=== PATIENT | male | born 1960 | race Caucasian/White ===

== ENCOUNTER 2021-06-28 08:50 | Outpatient (REF) | payer BC, SELFPAY ==
[2021-06-28 10:58] LABS: Glucose Urine UA NEG (NEG); Leukocyte Esterase Urine NEG (NEG); Nitrite Urine NEG (NEG); PH 6.5 (5.0-8.0); Urine Blood NEG (NEG); Urine Ketones NEG (NEG); Urine Protein NEG (NEG-TRACE)
[2021-06-28 11:00] LABS: Alanine Aminotransferase 17 U/L (0-40); Alkaline Phosphatase 81 U/L (39-117); Anion Gap 13 (12-20); Aspartate Amino Transferase 22 U/L (5-37); Bilirubin Total 0.9 mg/dL (0.0-1.0); Blood Urea Nitrogen 16 mg/dL (9-16); Calcium 9.5 mg/dL (8.4-10.2); Carbon Dioxide 27 mmol/L (22-29); Chloride 106 mmol/L (96-108); Cholesterol 164 mg/dL; Estimated Glomerular Filt Rate > 60; Glucose Fasting 101 mg/dL (60-99); HDL Cholesterol 40 mg/dL; LDL Cholesterol Calculated 102 mg/dl; Potassium 4.1 mmol/L (3.3-5.1); Sodium 142 mmol/L (135-145); Total Protein 6.2 g/dL (6.5-8.0); Triglycerides 114 mg/dL
[2021-06-28 11:02] LABS: Appearance Urine CLEAR; Color Urine YELLOW; Creatinine Urine 27.47 mg/dL; Microalbumin Urine < 5.0 mg/L
[2021-06-28 11:23] LABS: Prostate Specific Antigen Scr 0.51 ng/mL (<0.05-4.0); TSH reflex Free T4 1.01 uIU/mL (0.32-4.0)
== END 2021-06-28 08:51 | disposition home or self-care (01) ==
LOC: HO.LAB 08:50
PROVIDERS: PCP Family Medicine; Visit Provider Family Medicine
DX: Z00.00 Encounter for general adult medical examination without abnormal findings (principal); Z12.5 Encounter for screening for malignant neoplasm of prostate; I10 Essential (primary) hypertension
CPT/HCPCS: 36415; 80053; 80061; 81003; 82043; 84153; 84443

== ENCOUNTER → 2021-08-20 14:43 | Outpatient (BNVA) | payer BC, SELFPAY | PROVIDERS: PCP Family Medicine; Referring Provider Family Medicine; Visit Provider Nurse Practitioner Family ==

== ENCOUNTER 2021-10-20 07:53 | Day surgery (SDC) | payer BC, SELFPAY ==
--- NOTE | 2021-10-16 10:18 | HO.ANESPROP2 ---
Documented by User: Lula Shell NP 10/16/21 10:19 HPI - Anesthesia Eval Consult details Narrative: 60yo M for Colonoscopy PMFSH Active Problems Active Problems: All Active Problems (Updated 10/10/21 @ 13:14 by Janine Gupta, AURA) Annual visit for general adult medical examination without abnormal findings (Acute) Hematoma (Acute) Arm pain (Acute) Smoker (Acute) Actinic keratosis (Acute) Shoulder pain (Acute) Past Medical History Medical History Actinic keratosis Elevated cholesterol History of anal fissures HTN (hypertension) Smoker Surgical History Surgical History (Updated 10/20/21 @ 08:05 by Tahira Guerrero, AURA) History of ankle surgery History of surgery on arm Social History Social History Housing: House Patient Tobacco Use Status: Current everyday Tobacco user Tobacco use type: Cigarette Cigarettes Per Day: 6 e-Cigarette/Vaping Use: Never Used Use of substances other than those prescribed or required for medical reasons: No Are you DNR?: No Advance Directives: No Advance Directives Information Provided: Yes service: No Current occupational status: employed Current occupation: [employer] Allergies Allergy/AdvReac Type Severity Reaction Status Date / Time No Known Allergies Allergy Mild NKA Verified 10/20/21 08:18 Exam Exam Date and Time: October 16, 2021 1018 Pertinent Lab Results Pertinent Lab Results: Laboratory Tests 04/17/20 06/28/21 10:18 09:02 WBC 8.1 Hgb 16.3 Hct 49.5 Plt Count 187 Sodium 142 Potassium 4.1 Chloride 106 Carbon Dioxide 27 BUN 16 Creatinine 0.76 Assessment and Plan Assessment Anesthesia Assessment: Chart Reviewed Documented by User: Kody Parker 10/20/21 08:46 [facility] Past Medical History Medical History Actinic keratosis Elevated cholesterol History of anal fissures HTN (hypertension) Smoker Family History Family history of problems with anesthesia: No Surgical History Surgical History (Updated 10/20/21 @ 08:05 by Tahira Guerrero RN) History of ankle surgery History of surgery on arm History of Problems with Anesthesia: No Social History Social History Housing: House Patient Tobacco Use Status: Current everyday Tobacco user Tobacco use type: Cigarette Cigarettes Per Day: 6 e-Cigarette/Vaping Use: Never Used Use of substances other than those prescribed or required for medical reasons: No Are you DNR?: No Advance Directives: No Advance Directives Information Provided: Yes service: No Current occupational status: employed Current occupation: [employer] Allergies Allergy/AdvReac Type Severity Reaction Status Date / Time No Known Allergies Allergy Mild NKA Verified 10/20/21 08:18 Exam Airway Mallampati Class: II TM Dist: >3cm Neck ROM: Full Denture: Upper and Lower Loose/Missing/Broken Teeth: Yes Heart: rrr Lungs: bl breath sounds Assessment and Plan Final Anesthetic Review Family History of Problems with Anesthesia: No History of Problems with Anesthesia: No NPO: Yes ASA Class: II Final Preanesthetic Review: Anes Risks/Benef Reviewed Patient Risk: Intermediate Procedure Risk: Intermediate Anesthetic Plan Anesthetic Plan: MAC: Disposition: Standard PACU
[2021-10-20 08:18] VITALS: BMI 35.5
[2021-10-20 08:20] VITALS: BP 132/68; PULSE 88; RESP 16; TEMP 37.1; O2SAT 94
[2021-10-20] MEDS: Lactated Ringers 1,000 ML 100 ML IVCONT (08:37)
--- NOTE | 2021-10-20 09:28 | MHC.SHP ---
Pre-Procedural Eval Section A Date of Service: 10/20/21 Section B Chief Complaint: Screening Relevant Family History (Specify if Yes): No Relevant Social History: Tobacco Use Present Medications: see Short Stay Collaborative assessment Medical History: Significant History (Actinic keratosis Elevated cholesterol History of anal fissures HTN (hypertension) Smoker) History of Previous Operations: Relevant previous surgery/procedure and date(s) (History of ankle surgery History of surgery on arm) Allergies: Allergies Allergy/AdvReac Type Severity Reaction Status Date / Time No Known Allergies Allergy Mild NKA Verified 10/20/21 08:18 Review of Systems Sugical H&P ROS: Negative: Constitution, Cardiovascular, Respiratory, Neurological, Psychiatric, Hem-Onc, Allergic/Immunologic, Gastrointestinal, Genitourinary, Musculoskeletal, Integumentary, Endocrine and Eyes/Ears/Nose/Throat Exam Surgical H&P Exam: Normal: HEENT, Normal: Heart, Normal: Lungs, Normal: Extremities, Normal: Abdomen, Normal: Skin and Normal: Neurological Plan Diagnosis/Plan: Unchanged I have reviewed the history and physical and performed a pertinent physical examination on my patient. No changes have occurred unless specified.
--- NOTE | 2021-10-20 09:54 | P.BOP_ITS ---
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
--- NOTE | 2021-10-20 09:54 | W.PM.OPN ---
Operative Note Operative Note Date of Service: 10/20/21 Narrative: Operative Information Procedure Description: Colonoscopy COLONOSCOPY Instrument: Olympus variable stiffness pediatric scope 190L Colonoscopy Monitoring: Vital signs and clinical assessment, continuous EKG monitoring, Pulse oximetry, Carbon Dioxide monitoring and blood pressure monitoring were done throughout the procedure. Colon withdrawal time was 14 minutes. Procedure: The patient was placed in the left lateral decubitis position and pre-procedure medications were administered. After a digital rectal examination of the ano-rectum, the video colonoscope was inserted into the rectum and advanced through the colon to the cecum/TI. The colonoscope was slowly withdrawn in a retrograde panoramic fashion and the colon mucosa was carefully examined including a retroflexed view of the rectum. Findings and interventions are described below. Procedure Difficulty: easy Findings: Terminal Ileum-normal Cecum:normal Ascending Colon: normal Transverse Colon -normal Descending Colon: x 2 sessile polyps 8-9 mm, one removed with cold snare and the other with forceps Sigmoid Colon: moderate severe diverticulosis, 9-10 mm sessile polyp removed with cold snare Rectum: Retroflexion with small internal hemorrhoids, grade I Anorectum - normal Colon preparation: [place] Bowel Preparation Scale Right colon; 2 Transverse colon: 3 Left colon; 3 (0 = Unprepared colon segment with mucosa not seen due to solid stool that cannot be cleared. 1 = Portion of mucosa of the colon segment seen, but other areas of the colon segment not well seen due to staining, residual stool and/or opaque liquid. 2 = Minor amount of residual staining, small fragments of stool and/or opaque liquid, but mucosa of colon segment seen well. 3 = Entire mucosa of colon segment seen well with no residual staining, small fragments of stool or opaque liquid) Impression and Post Procedure Diagnosis: polyps internal hemorrhoids diverticular disease Plan: High fiber diet leaflet Avoid straining at stool, epsom salts and sitz bath, anusol supps or cream Repeat Colonoscopy in 5-7 years due to polyps or earlier if clinically indicated Above findings were reviewed with the patient and relevant handouts were provided if indicated.
[2021-10-20 10:00] VITALS: BP 93/58; PULSE 83; RESP 16; TEMP 36.5; O2SAT 96
[2021-10-20 10:15] VITALS: BP 113/64; PULSE 78; RESP 16; TEMP 36.5; O2SAT 95
== END 2021-10-20 10:53 ==
LOC: HO.SSS 07:54
PROVIDERS: PCP Family Medicine; Visit Provider Internal Medicine Gastroenterology
PROC: 0DJD8ZZ Inspection of Lower Intestinal Tract, Via Natural or Artificial Opening Endoscopic (ICD-10-PCS; CPT 45378; principal; 2021-10-20 09:20)
DX: Z12.11 Encounter for screening for malignant neoplasm of colon (principal); D12.4 Benign neoplasm of descending colon; K63.5 Polyp of colon; K57.30 Diverticulosis of large intestine without perforation or abscess without bleeding; K64.0 First degree hemorrhoids; Z87.19 Personal history of other diseases of the digestive system; I10 Essential (primary) hypertension; E78.00 Pure hypercholesterolemia, unspecified; Z79.899 Other long term (current) drug therapy; F17.210 Nicotine dependence, cigarettes, uncomplicated
CPT/HCPCS: 45385; 45380; 88305; J2370

== ENCOUNTER 2021-12-24 06:12 | Emergency (ER) | payer BC, SELFPAY ==
--- NOTE | ~2021-12-24 | CT_ITS ---
EXAMINATION: CT ABDOMEN AND PELVIS WITHOUT CONTRAST CLINICAL INFORMATION: Left lower quadrant pain COMPARISON: 11/13/2006 TECHNIQUE: Multidetector volumetric imaging was performed from the superior aspect of the liver through the pubic symphysis. Sagittal and coronal reformatted images were obtained on the technologist's workstation. This CT examination was performed using dose optimization techniques as appropriate, variously including the following: *Automated exposure control *Adjustment of mA and/or kV according to patient size (this includes techniques or standardized protocols for targeted exams where dose is matched to indication/reason for exam; i.e. extremities or head) *Use of iterative reconstruction technique DLP: 858 mGy-cm FINDINGS: LUNG BASES: Minimal right basilar atelectasis. LIVER, GALLBLADDER, AND BILIARY TREE: The liver is normal in size, shape, and attenuation. No focal hepatic lesion or biliary ductal dilatation is present. A regular appearance of the gallbladder fundus, with thickening. This is a chronic appearance. PANCREAS: Unremarkable. SPLEEN: Unremarkable. ADRENAL GLANDS: Unremarkable. KIDNEYS AND URETERS: The kidneys are normal in size, shape, and attenuation. Mild left hydroureteronephrosis. There is a mid ureteral obstructing calculus measuring 0.5 cm. This is at the L4 level. Perinephric and periureteral stranding present. Nonobstructing 0.2 cm calculi at the upper pole of the left kidney, 11 cm from the posterior axillary line. On the right there are 2 calculi present. The largest is seen in the renal pelvis measuring 0.8 cm, 13 cm from the posterior axillary line. This measures 650 Hounsfield units. BLADDER: Unremarkable. GASTROINTESTINAL TRACT: The stomach is unremarkable. Normal caliber small bowel. No obstruction. Diffuse colonic diverticulosis without diverticulitis. Normal appendix. No free air or free fluid. ABDOMINAL WALL: Fat-containing small bilateral inguinal hernias. LYMPH NODES: Normal. VASCULAR: Unremarkable. PELVIC VISCERA: The prostate and seminal vesicles are unremarkable. OSSEOUS STRUCTURES: No acute or suspicious osseous abnormality. Mild degenerative changes of the hips. CT/CT abdomen pelvis wo con IMPRESSION: Mild left hydroureteronephrosis with a mid ureteral 0.5 cm obstructing calculus. Additional nonobstructing bilateral renal calculi. Chronic appearing thickening and irregularity of the gallbladder wall fundus. Fleischner guidelines were followed.
[2021-12-24 06:18] VITALS: BP 135/86; PULSE 92; RESP 18; TEMP 36.8; O2SAT 95; BMI 34.8
[2021-12-24 06:34] LABS: MANUAL DIFF FLAG NO
[2021-12-24 06:35] LABS: Basophils Absolute Auto 0.1 X10*3/uL (0.0-0.2); Basophils Percent Auto 0.6 % (0-2); Eosinophils Absolute Auto 0.1 X10*3/uL (0.0-0.4); Eosinophils Percent Auto 1.1 % (0-4); Hematocrit 49.3 % (42.0-52.0); Imm Gran Abs Auto 0.06 X10*3/uL (0.00-0.03); Imm Gran Pct Auto 0.7 % (0.0-0.4); Lymphocytes Percent Auto 22.7 % (20-40); Mean Corpuscular HGB Conc 32.5 g/dl (31.0-36.0); Mean Corpuscular Hemoglobin 28.6 pg (27.0-33.0); Mean Corpuscular Volume 88.2 fL (80.0-98.0); Mean Platelet Volume 11.3 fL (9.4-12.4); Monocytes Absolute Auto 0.8 X10*3/uL (0.1-1.2); Monocytes Percent Auto 8.6 % (2-11); Neutrophils Percent Auto 66.3 % (45-73); Platelet Count 213 X10*3/uL (160-400); Red Blood Count 5.59 X10*6/uL (4.60-5.80); Red Cell Distribution Width 13.1 % (11.0-16.0)
--- NOTE | 2021-12-24 06:44 | ED.ABDPAIN ---
HPI - Abdominal Pain General Chief Complaint: Abdominal Pain Stated Complaint: L side radiating pain down to private & back Time Seen by Provider: 12/24/21 06:40 Source: patient Mode of arrival: ambulatory Limitations: no limitations History of Present Illness MD elicited complaint: abdominal pain and flank pain Pertinent past history: diverticulitis Onset (ago): hour(s) (started at 4am) Pain Consistency: constant Location: LLQ and L flank Severity: severe Quality: stabbing Radiation: other (L testicle) Exacerbating factors: movement Relieving factors: nothing Context: history of similar episodes (1 month ago had similar episode it resolved) Associated symptoms: nausea Related Data Previous Rx's Medication Instructions Recorded atorvastatin 10 mg tablet 10 mg PO DAILY 90 Days #90 tab 08/20/21 nicotine 14 mg/24 hr daily 1 patch TRANSDERMAL Q24H 28 Days 09/17/21 transdermal patch (Nicoderm CQ) #28 ea methylcellulose (laxative) 500 mg 500 mg PO DAILY #60 tab 10/21/21 tablet (Citrucel) azithromycin 250 mg tablet See Rx Instructions PO .COMPLEX 5 11/10/21 (Zithromax Z-Jaylan) Days #6 tab nicotine 14 mg/24 hr daily 1 patch TRANSDERMAL Q24H 28 Days 11/10/21 transdermal patch (Nicoderm CQ) #28 ea lisinopril 10 1 tab PO DAILY #90 tab 11/13/21 mg-hydrochlorothiazide 12.5 mg tablet ondansetron 4 mg disintegrating 4 mg PO Q8H PRN #20 tab 12/24/21 tablet oxycodone 10 mg tablet 10 mg PO Q6H PRN #15 tab 12/24/21 prednisone 20 mg tablet 40 mg PO DAILY 5 Days #10 tab 12/24/21 tamsulosin 0.4 mg capsule 0.4 mg PO DAILY 5 Days #5 cap 12/24/21 Allergies Allergy/AdvReac Type Severity Reaction Status Date / Time No Known Allergies Allergy Mild NKA Verified 11/10/21 08:35 Review of Systems Review of Systems Constitutional : No Weight loss, No Fever, No Chills ENT/Mouth : No sore throat, No Rhinorrhea Eyes: No Swelling, No Redness Cardiovascular : No Chest Pain, No SOB, No Edema Respiratory : No Cough, No Sputum, No Wheezing Gastrointestinal : Positive Nausea, no Vomiting, no Diarrhea, positive abdominal Pain, No Hematochezia, No Melena Genitourinary : No Dysuria, No Urinary Frequency, No Hematuria, No Urgency Musculoskeletal : No joint pain, No Myalgias, No Joint Swelling Skin : No Skin Lesions, No rash Neuro : No Weakness, No Numbness, No Dizziness, No Headache Psych : No Anxiety/Panic, No Depression Heme/Lymph: No Bruising, No Lymphadenopathy Endocrine : No Polyuria, No Polydipsia All other systems reviewed and are negative. [facility] Past Medical History Attestation statement: The following information was validated with the patient. Medical History Actinic keratosis Elevated cholesterol History of anal fissures HTN (hypertension) Smoker Surgical History History of ankle surgery History of surgery on arm Family History Family History (Updated 11/10/21 @ 08:37 by Carolyne Powers CMA) Other Mental health disorder Social History Social History Housing: House Patient Tobacco Use Status: Current someday Tobacco user Tobacco use type: Cigarette Cigarettes Per Day: 7 Smoked in Last 30 Days: Yes e-Cigarette/Vaping Use: Never Used Use of substances other than those prescribed or required for medical reasons: No Advance Directives: No service: No Current occupational status: employed Current occupation: [employer] Physical Exam ED Vital Signs: Vital Signs - 24 hr 12/24/21 06:18 12/24/21 07:53 Temperature 98.3 F Pulse Rate 92 89 Respiratory Rate 18 18 Blood Pressure 135/86 140/78 H Pulse Oximetry 95 95 BMI result Body Mass Index 34.8 Appearance: Alert. Oriented X3. No acute distress. Eyes: Pupils equal, round and reactive to light. ENT: Pharynx normal. Neck: Normal inspection. Neck supple. CVS: Normal heart rate and rhythm. Pulses normal. Respiratory: No respiratory distress. Breath sounds normal. Abdomen: Soft and moderate ttp in LLQ pos guarding no rebound Skin: Skin warm and dry. Normal skin color. Normal skin turgor. Extremities: No lower extremity edema. Neuro: Oriented X 3. No motor deficit. No sensory deficit. Course Course Course Narrative: message sent to Dr. White 809am - can follow up as outpatient - PO medications if pain persists outpatient clinic feels stone can pass at home patient pain relieved, no vomiting, able to void MDM - Abdominal Pain MDM Narrative Medical decision making narrative: 61 yo male hx of HTN, HLD here with c/o abrupt onset LLQ pain with some nausea no prior kidney stones had one bout of pain a month ago that resolved. He does have prior hx of diverticulitis. At this time will obtain basic labs, CT scan for renal colic, diverticulitis. IV toradol/morphine for pain. Dispo per results and findings. Differential Diagnosis Differential diagnosis: Likely calculus of kidney, diverticulitis and renal colic; Unlikely aortic dissection, acute appendicitis, mesenteric ischemia or small bowel obstruction Lab Data Result diagrams: 12/24/21 06:29 12/24/21 06:29 Labs: Lab Results 12/24/21 12/24/21 12/24/21 Range/Units 06:29 06:29 08:01 WBC 9.0 (4.8-10.8) X10*3/uL RBC 5.59 (4.60-5.80) X10*6/uL Hgb 16.0 (14.0-18.0) g/dl Hct 49.3 (42.0-52.0) % MCV 88.2 (80.0-98.0) fL MCH 28.6 (27.0-33.0) pg MCHC 32.5 (31.0-36.0) g/dl RDW 13.1 (11.0-16.0) % Plt Count 213 (160-400) X10*3/uL MPV 11.3 (9.4-12.4) fL Immature Gran % (Auto) 0.7 H (0.0-0.4) % Neut % (Auto) 66.3 (45-73) % Lymph % (Auto) 22.7 (20-40) % [place] % (Auto) 8.6 (2-11) % Eos % (Auto) 1.1 (0-4) % Baso % (Auto) 0.6 (0-2) % Lymph # (Auto) 2.0 (1.2-4.9) X10*3/uL [place] # (Auto) 0.8 (0.1-1.2) X10*3/uL Eos # (Auto) 0.1 (0.0-0.4) X10*3/uL Baso # (Auto) 0.1 (0.0-0.2) X10*3/uL Abs Immat Gran (auto) 0.06 H (0.00-0.03) X10*3/uL Absolute Neuts (auto) 6.0 (2.0-8.3) x10*3/uL Absolute Nucleated RBC 0.000 (0.0-0.012) X10*3/uL Nucleated RBC % (auto) 0.0 (0.0-0.2) /100WBC Sodium 143 (135-145) mmol/L Potassium 4.4 (3.3-5.1) mmol/L Chloride 106 (96-108) mmol/L Carbon Dioxide 29 (22-29) mmol/L Anion Gap 12 (12-20) BUN 16 (9-16) mg/dL Creatinine 0.98 (0.5-1.4) mg/dL Estim Creat Clear Calc 102.6 Estimated GFR > 60 Random Glucose 117 H (60-115) mg/dL Calcium 9.7 (8.4-10.2) mg/dL Total Bilirubin 0.6 (0.0-1.0) mg/dL Direct Bilirubin 0.2 (0.0-0.5) mg/dL AST 19 (5-37) U/L ALT 17 (0-40) U/L Alkaline Phosphatase 83 (39-117) U/L Total Protein 6.8 (6.5-8.0) g/dL Albumin 4.2 (3.5-5.0) g/dL Lipase 36 (8-78) U/L Urine Color Urine Appearance Urine pH (5.0-8.0) Ur Specific [place] (1.005-1.025) Urine Protein (NEG-TRACE) MG/DL Urine Glucose (UA) (NEG) MG/DL Urine Ketones (NEG) MG/DL Urine Blood (NEG) Urine Nitrite (NEG) Ur Leukocyte Esterase (NEG) Urine RBC (0) /HPF Urine WBC (0-4) /HPF Ur Squamous Epith Cells /LPF Urine Bacteria /LPF Urine Mucus /LPF COVID-19 (DANIEL) Negative (Negative) COVID-19 Clin Com See Note 12/24/21 Range/Units 08:45 WBC (4.8-10.8) X10*3/uL RBC (4.60-5.80) X10*6/uL Hgb (14.0-18.0) g/dl Hct (42.0-52.0) % MCV (80.0-98.0) fL MCH (27.0-33.0) pg MCHC (31.0-36.0) g/dl RDW (11.0-16.0) % Plt Count (160-400) X10*3/uL MPV (9.4-12.4) fL Immature Gran % (Auto) (0.0-0.4) % Neut % (Auto) (45-73) % Lymph % (Auto) (20-40) % [place] % (Auto) (2-11) % Eos % (Auto) (0-4) % Baso % (Auto) (0-2) % Lymph # (Auto) (1.2-4.9) X10*3/uL [place] # (Auto) (0.1-1.2) X10*3/uL Eos # (Auto) (0.0-0.4) X10*3/uL Baso # (Auto) (0.0-0.2) X10*3/uL Abs Immat Gran (auto) (0.00-0.03) X10*3/uL Absolute Neuts (auto) (2.0-8.3) x10*3/uL Absolute Nucleated RBC (0.0-0.012) X10*3/uL Nucleated RBC % (auto) (0.0-0.2) /100WBC Sodium (135-145) mmol/L Potassium (3.3-5.1) mmol/L Chloride (96-108) mmol/L Carbon Dioxide (22-29) mmol/L Anion Gap (12-20) BUN (9-16) mg/dL Creatinine (0.5-1.4) mg/dL Estim Creat Clear Calc Estimated GFR Random Glucose (60-115) mg/dL Calcium (8.4-10.2) mg/dL Total Bilirubin (0.0-1.0) mg/dL Direct Bilirubin (0.0-0.5) mg/dL AST (5-37) U/L ALT (0-40) U/L Alkaline Phosphatase (39-117) U/L Total Protein (6.5-8.0) g/dL Albumin (3.5-5.0) g/dL Lipase (8-78) U/L Urine Color YELLOW Urine Appearance CLEAR Urine pH 6.0 (5.0-8.0) Ur Specific [place] >= 1.030 H (1.005-1.025) Urine Protein NEG (NEG-TRACE) MG/DL Urine Glucose (UA) NEG (NEG) MG/DL Urine Ketones NEG (NEG) MG/DL Urine Blood 1+ H (NEG) Urine Nitrite NEG (NEG) Ur Leukocyte Esterase NEG (NEG) Urine RBC 10-14 H (0) /HPF Urine WBC 0 (0-4) /HPF Ur Squamous Epith Cells TRACE /LPF Urine Bacteria NONE /LPF Urine Mucus TRACE /LPF COVID-19 (DANIEL) (Negative) COVID-19 Clin Com Discharge Plan Discharge Clinical Impression: Calculus, ureteral Abdominal pain Qualifiers: Abdominal location: left lower quadrant Qualified Code(s): R10.32 - Left lower quadrant pain Patient Disposition: Home, Self-Care Instructions: Ureteral Stones (ED) Additional Instructions: return to ED for any worsening symptoms or concerns if fevers, vomiting, worsening pain, inability to urinate occurs please return to ED. If pain perists over 2 days please call Urology start flomax (tamsulosin) and prednisone tomorrow 3/3 Prescriptions: New tamsulosin 0.4 mg capsule 0.4 mg PO DAILY 5 Days Qty: 5 0RF prednisone 20 mg tablet 40 mg PO DAILY 5 Days Qty: 10 0RF ondansetron 4 mg tablet,disintegrating 4 mg PO Q8H PRN (Reason: nausea and vomiting) Qty: 20 0RF oxycodone 10 mg tablet 10 mg PO Q6H PRN (Reason: pain) Qty: 15 0RF No Action atorvastatin 10 mg tablet 10 mg PO DAILY 90 Days Qty: 90 3RF nicotine [Nicoderm CQ] 14 mg/24 hr patch 24 hour 1 patch transdermal Q24H 28 Days Qty: 28 1RF Citrucel 500 mg tablet 500 mg PO DAILY Qty: 60 2RF lisinopril-hydrochlorothiazide 10-12.5 mg tablet 1 tab PO DAILY Qty: 90 0RF nicotine [Nicoderm CQ] 14 mg/24 hr patch 24 hour 1 patch transdermal Q24H 28 Days Qty: 28 2RF azithromycin [Zithromax Z-Jaylan] 250 mg tablet See Rx Instructions PO .COMPLEX 5 Days Qty: 6 0RF Rx Instructions: take 500 mg today (day 1), then 250 mg for 4 days (days 2-5) PO Referrals: Kirby White MD [Physician] - 2 days (if not better) Stand Alone Forms: Work/School Release
[2021-12-24 06:50] LABS: Anion Gap 12 (12-20); Blood Urea Nitrogen 16 mg/dL (9-16); Calcium 9.7 mg/dL (8.4-10.2); Carbon Dioxide 29 mmol/L (22-29); Chloride 106 mmol/L (96-108); Creatinine Clr Calc Pharmacy 102.6; Estimated Glomerular Filt Rate > 60; Glucose Random 117 mg/dL (60-115); Potassium 4.4 mmol/L (3.3-5.1); Sodium 143 mmol/L (135-145)
[2021-12-24 06:55] LABS: Alanine Aminotransferase 17 U/L (0-40); Albumin Level 4.2 g/dL (3.5-5.0); Alkaline Phosphatase 83 U/L (39-117); Aspartate Amino Transferase 19 U/L (5-37); Bilirubin Direct 0.2 mg/dL (0.0-0.5); Bilirubin Total 0.6 mg/dL (0.0-1.0); Lipase 36 U/L (8-78); Total Protein 6.8 g/dL (6.5-8.0)
[2021-12-24] MEDS: Ketorolac Tromethamine 30 MG/ML VIAL IVPUSH (06:57)
[2021-12-24] MEDS: ondansetron HCL 4 MG/2 ML VIAL IVPUSH (06:58)
[2021-12-24] MEDS: Morphine Sulfate 4 MG/ML CARTRIDGE IVPUSH (06:58)
[2021-12-24] MEDS: 0.9 % Sodium Chloride 1,000 ML 999 ML IV (06:58)
[2021-12-24 07:53] VITALS: BP 140/78; PULSE 89; RESP 18; O2SAT 95
[2021-12-24] MEDS: methylPREDNISolone Sod Succ 125 MG/2 ML VIAL IVPUSH (08:14)
[2021-12-24] MEDS: Tamsulosin HCL 0.4 MG CAPSULE PO (08:14)
[2021-12-24 08:41] LABS: COVID-19 Test Negative (Negative)
[2021-12-24 08:49] LABS: Appearance Urine CLEAR; Color Urine YELLOW; Glucose Urine UA NEG (NEG); Leukocyte Esterase Urine NEG (NEG); Nitrite Urine NEG (NEG); Specific Gravity - Urine >= 1.030 (1.005-1.025); UACC Culture Trigger NO; Urine Blood 1+ (NEG); Urine Ketones NEG (NEG); Urine Protein NEG (NEG-TRACE)
[2021-12-24 09:01] LABS: Mucus Urine TRACE /LPF; Squamous Epithelial Cell Urine TRACE /LPF; WBC Urine 0 /HPF (0-4)
[2021-12-24] MEDS: oxyCODONE HCl Immed Release 5 MG TABLET PO (09:34)
== END 2021-12-24 09:42 | disposition home or self-care (01) ==
PROVIDERS: Emergency Provider Emergency Medicine; PCP Family Medicine
DX: N13.2 Hydronephrosis with renal and ureteral calculous obstruction (principal); R10.32 Left lower quadrant pain; Z20.822 Contact with and (suspected) exposure to COVID-19; F17.200 Nicotine dependence, unspecified, uncomplicated
CPT/HCPCS: 36415; 74176; 80048; 80076; 81001; 83690; 85025; 87635; 96361; 96374; 96375; 99284; 99285; J1885; J2270; J2405; J2930

== ENCOUNTER → 2022-02-17 14:25 | Outpatient (BNVA) | payer BC, SELFPAY | PROVIDERS: PCP Family Medicine | DX: Z13.89 Encounter for screening for other disorder (principal) ==

== ENCOUNTER → 2022-03-31 15:45 | Outpatient (BNVA) | payer BC, SELFPAY | PROVIDERS: PCP Family Medicine; Visit Provider Urology | DX: N20.0 Calculus of kidney (principal) ==

== ENCOUNTER 2022-04-29 06:39 | Day surgery (SDC) | payer BC, SELFPAY ==
--- NOTE | ~2022-04-29 | XR_ITS ---
EXAMINATION: XR ABDOMEN KUB CLINICAL INDICATION: Stones. COMPARISON: CT abdomen pelvis 12/24/2021. TECHNIQUE: AP view of the abdomen. FINDINGS: The bowel gas pattern is normal with no evidence of ileus or obstruction. A 1.2 cm radiopaque calculi overlies the lower pole of right kidney. No additional radiopaque calculi seen. There is no organomegaly. No gross bony abnormality seen. XR/XR KUB IMPRESSION: 1.2 cm radiopaque calculi overlies the lower pole calyx right kidney. On previous CT there were 2 radiopaque calculi seen in the right kidney pelvis and lower pole right kidney.
[2022-04-29 07:06] VITALS: BP 146/86; PULSE 79; RESP 18; TEMP 36.1; O2SAT 95; BMI 34.8
[2022-04-29] MEDS: Lactated Ringers 1,000 ML 50 ML IVCONT (07:15)
[2022-04-29] MEDS: Acetaminophen 325 MG TABLET 650 MG PO (07:19)
--- NOTE | 2022-04-29 07:33 | MHC.SHP ---
Pre-Procedural Eval Section A Date of Service: 04/29/22 The patient is an INPATIENT: No Changes since office visit: No Cold of Flu in the past 2 weeks, No New Medical Problems, No Changes in Medication and No Patient answered all questions The History & Physical has been completed within 30 days and I have reviewed it.: No Section B Chief Complaint: Calculus of kidney Details of Present Illness: right sided Relevant Family History (Specify if Yes): No Relevant Social History: None Present Medications: see Short Stay Collaborative assessment Medical History: No relevant PMH History of Previous Operations: No relevant previous surgery Allergies: Allergies Allergy/AdvReac Type Severity Reaction Status Date / Time No Known Allergies Allergy Mild NKA Verified 04/20/22 15:42 Review of Systems Sugical H&P ROS: Negative: Constitution, Cardiovascular, Respiratory, Neurological, Psychiatric, Hem-Onc, Allergic/Immunologic, Gastrointestinal, Genitourinary, Musculoskeletal, Integumentary, Endocrine and Eyes/Ears/Nose/Throat Exam Surgical H&P Exam: Normal: HEENT, Normal: Heart, Normal: Lungs, Normal: Extremities, Normal: Abdomen, Normal: Skin and Normal: Neurological Plan Diagnosis/Plan: Unchanged I have reviewed the history and physical and performed a pertinent physical examination on my patient. No changes have occurred unless specified.
--- NOTE | 2022-04-29 07:57 | HO.ANESPROP2 ---
[facility] Active Problems Active Problems: All Active Problems (Updated 04/23/22 @ 10:28 by Janine Gupta RN) Annual visit for general adult medical examination without abnormal findings (Acute) Hematoma (Acute) Arm pain (Acute) Smoker (Acute) Actinic keratosis (Acute) Shoulder pain (Acute) Bronchitis (Acute) Skin tags, multiple acquired (Acute) Nephrolithiasis (Acute) Past Medical History Medical History Actinic keratosis Elevated cholesterol History of anal fissures HTN (hypertension) Kidney stones Smoker Family History Family History Other Mental health disorder Family history of problems with anesthesia: No Surgical History Surgical History History of ankle surgery History of surgery on arm Hx of colonoscopy History of Problems with Anesthesia: No Social History Social History Housing: House Patient Tobacco Use Status: Current everyday Tobacco user Tobacco use type: Cigarette Cigarettes Per Day: 5 Years Smoked: 25 e-Cigarette/Vaping Use: Never Used Second Hand Smoke Exposure: No Use of substances other than those prescribed or required for medical reasons: No Are you DNR?: No Advance Directives: No Advance Directives Information Provided: Yes service: No Current occupational status: employed Current occupation: [employer] Cognitive needs: No Hearing needs: No Vision needs: No Meds Allergies Allergy/AdvReac Type Severity Reaction Status Date / Time No Known Allergies Allergy Mild NKA Verified 04/20/22 15:42 Exam Exam Date and Time: April 29, 2022 0757 Height,Weight and Vital Signs: Height 5 ft 11 in Weight 113.398 kg Last Vital Signs Temp 96.9 F 04/29/22 07:06 Pulse 79 04/29/22 07:06 Resp 18 04/29/22 07:06 BP 146/86 H 04/29/22 07:06 Pulse Ox 95 04/29/22 07:06 O2 Del Method 04/29/22 07:06 Airway Mallampati Class: III TM Dist: >3cm Neck ROM: Full Denture: Upper Loose/Missing/Broken Teeth: Yes, Upper and Lower Heart: RRR Lungs: CTA Assessment and Plan Final Anesthetic Review Family History of Problems with Anesthesia: No History of Problems with Anesthesia: No ASA Class: II Final Preanesthetic Review: Meds/Allgs Chart Reviewed, Consent Obtained/Reviewed and Anes Risks/Benef Reviewed Patient Risk: Low Procedure Risk: Low Assessment/Block/Sedation in SS: Assess/Block/Sedation-SS Anesthetic Plan Anesthetic Plan: MAC: Disposition: Standard PACU
--- NOTE | 2022-04-29 08:37 | W.PM.OPN ---
Operative Note Operative Note Date of Service: 04/29/22 Narrative: PreOperative Diagnosis: Right Renal stones Post Operative Diagnosis: Right Renal stones Procedure: Right ESWL Surgeon: Dr Kirby White Anesthesia: mac/sedation Indications for procedure: The patient understands ESWL may be a staged procedure and subsequent intervention may be required based on imaging after ESWL. They also understand there is a risk of bleeding to the kidney, infection, damage to adjacent organs, and stone migration following the procedure. - Imaging ultrasound with 8 mm and 6 mm Procedure: After informed consent was verified the patient was brought to the operating room and placed in a supine position. Anesthesia was performed per protocol. Safety pause time-out was performed. Imaging was displayed in the room and laterality confirmed. ESWL was performed. The 1st 500 shocks were performed at 60 hertz. These were performed with increasing power - up to 20 Once maximum power was reached the rate was increased to 180 hertz. A total of 2500 shocks were given. Targeted imaging with ultrasound/fluoroscopy showed stone smudging suggestive of disintegration. The patient tolerated the procedure well and was transferred to the recovery area upon completion. Post procedure imaging will be organized. There was no evidence for flank discoloration.
[2022-04-29 09:03] VITALS: BP 114/69; PULSE 69; RESP 18; TEMP 37.2; O2SAT 96
[2022-04-29 09:18] VITALS: BP 123/82; PULSE 74; RESP 18; O2SAT 95
[2022-04-29 09:33] VITALS: BP 139/81; PULSE 62; RESP 18; O2SAT 95
[2022-04-29 09:48] VITALS: BP 145/71; PULSE 71; RESP 18; TEMP 36.3; O2SAT 96
== END 2022-04-29 10:28 | disposition home or self-care (01) ==
PROVIDERS: PCP Family Medicine; Visit Provider Urology
PROC: (CPT 50590; principal; 2022-04-29 08:20)
DX: N20.0 Calculus of kidney (principal); I10 Essential (primary) hypertension; E78.00 Pure hypercholesterolemia, unspecified; L57.0 Actinic keratosis; Z79.899 Other long term (current) drug therapy; F17.210 Nicotine dependence, cigarettes, uncomplicated
CPT/HCPCS: 50590; 74018; J2250; J3010

== ENCOUNTER 2022-05-07 10:52 | Emergency (ER) | payer BC, SELFPAY ==
--- NOTE | ~2022-05-07 | US_ITS ---
EXAMINATION: US SCROTUM CLINICAL INFORMATION: Right testicular pain.. COMPARISON: None TECHNIQUE: A sonogram of the scrotum was performed assessing high-scale appearance and color Doppler flow. Spectral Doppler analysis of the arterial and venous flow were performed in the testes bilaterally. FINDINGS: RIGHT: Right testicle measures 4.2 x 3.0 x 3.3 cm, volume 21 mL. The testicle is smooth in contour and uniform in echogenicity, or polyp with the contralateral left side. No intratesticular mass. There is symmetric bilateral color flow. Spectral Doppler shows low resistance arterial waveform. Mild fullness right epididymal head with increased vascularity on color Doppler suggesting epididymitis. There is a small right hydrocele. No varicocele. LEFT: Left testicle measures 4.5 x 2.1 x 3.2 cm, volume 16 mL. The testicle is smooth in contour and uniform in echogenicity, or polyp with the contralateral left side. No intratesticular mass. There is symmetric bilateral color flow. Spectral Doppler shows low resistance arterial waveform. Left epididymal head is normal in size. No left hydrocele or varicocele is seen. US/US scrotum doppler IMPRESSION: -Mild fullness right epididymal head with a small hydrocele and increased vascularity suggesting epididymitis. -Normal bilateral testicles. No intratesticular mass or torsion.
[2022-05-07 10:54] VITALS: BP 161/88; PULSE 90; RESP 18; TEMP 36.8; O2SAT 95; BMI 34.8
--- NOTE | 2022-05-07 15:49 | ED.MALEGU ---
HPI - Male Genitourinary General Chief complaint: Urogenital-Male Stated complaint: testical issues Time Seen by Provider: 05/07/22 15:42 Source: patient Mode of arrival: ambulatory Limitations: no limitations History of Present Illness HPI Narrative: this is a 61 years old male presented to the emergency department complaining of right testicular pain discoloration. He had lithotripsy on April 29 for kidney stones. Denies any fever denies any chills no vomiting. MD Complaint: testicle pain Onset (ago): hour(s) (2) Duration: constant Location: right testicle Radiation: right testicle Severity: moderate Quality: aching Relieving factors: none Exacerbating factors: none Context: new medication Related Data Previous Rx's Medication Instructions Recorded atorvastatin 10 mg tablet 10 mg PO DAILY 90 days #90 tabs 08/20/21 methylcellulose (laxative) 500 mg 500 mg PO DAILY #60 tabs 10/21/21 tablet (Citrucel) lisinopril 10 1 tab PO DAILY #90 tabs 04/22/22 mg-hydrochlorothiazide 12.5 mg tablet nicotine 14 mg/24 hr daily 1 patch transdermal Q24H 28 days 04/22/22 transdermal patch (Nicoderm CQ) #28 ea naproxen 500 mg tablet 500 mg PO BID PRN pain 7 days #14 04/29/22 tabs phenazopyridine 100 mg tablet 100 mg PO TID PRN spasm 4 days #12 04/29/22 (Pyridium) tabs tamsulosin 0.4 mg capsule 0.4 mg PO BEDTIME 14 days #14 caps 04/29/22 tramadol 50 mg tablet 50 mg PO Q6H PRN pain (scale score 04/29/22 1-3) #8 tabs doxycycline monohydrate 100 mg 100 mg PO BID #14 caps 05/07/22 capsule Allergies Allergy/AdvReac Type Severity Reaction Status Date / Time No Known Allergies Allergy Mild NKA Verified 04/20/22 15:42 Review of Systems ENT: Reports system reviewed and no additional complaints, except as documented Cardiovascular: Cardiovascular: Reports no additional cardiovascular complaints Respiratory: Respiratory: Reports no additional respiratory complaints Gastrointestinal: Gastrointestinal: Reports no additional gastrointestinal complaints Neurologic: Reports system reviewed and no additional complaints, except as documented Allergic/Immunologic: Allergic/Immunologic: Reports no additional allergic/immunologic complaints PMFSH Past Medical History Medical History Actinic keratosis Elevated cholesterol History of anal fissures HTN (hypertension) Kidney stones Smoker Surgical History History of ankle surgery History of surgery on arm Hx of colonoscopy Family History Family History Other Mental health disorder Social History Social History Housing: House Patient Tobacco Use Status: Current everyday Tobacco user Tobacco use type: Cigarette Cigarettes Per Day: 5 Years Smoked: 25 e-Cigarette/Vaping Use: Never Used Second Hand Smoke Exposure: No Advance Directives: No Advance Directives Information Provided: Yes service: No Current occupational status: employed Current occupation: [employer] Cognitive needs: No Hearing needs: No Vision needs: No Physical Exam Vital Signs: Vital Signs: Last Vital Signs Temp 98.5 F 05/07/22 16:21 Pulse 84 05/07/22 16:21 Resp 18 05/07/22 16:21 BP 141/63 H 05/07/22 16:21 Pulse Ox 97 05/07/22 16:21 O2 Del Method 05/07/22 16:21 BMI result Body Mass Index 34.8 Const: General: cooperative Orientation/consciousness: patient oriented x3 Limitations: no limitations HEENT: Head: Yes normal to inspection Ears: hearing grossly normal bilaterally Face and sinus: Yes normal facial exam Mouth: Normal oral and palatal mucosa present Throat: Yes posterior oropharynx normal Neck: Neck: Yes normal visual inspection Chest: Chest palpation & inspection: normal inspection of the chest Resp: Effort & Inspection: normal respiratory effort Auscultation: clear to auscultation bilaterally Cardio: Jugular venous distension: no JVD Rate: regular rate Rhythm: regular rhythm GI: Inspection: Yes normal to inspection Palpation (GI): Soft to palpation, nontender, no guarding and not rigid : Other: Right testicle slightly swollen mild tenderness Skin: General skin exam: no rashes or lesions noted and elasticity normal Lesions: no lesions Neuro: General: patient oriented x3 Course Reevaluation(s) Reevaluation #1: patient is doing well ultrasound shows no torsion and consistent with epididymitis, will discharge the patient home on p.o. antibiotic and follow-up with Urology MDM - Male Genitourinary Lab Data Result diagrams: 05/07/22 16:26 05/07/22 16:26 Labs: Lab Results 05/07/22 05/07/22 05/07/22 Range/Units 16:26 16:26 16:26 WBC 12.0 H (4.8-10.8) X10*3/uL RBC 4.79 (4.60-5.80) X10*6/uL Hgb 13.7 L (14.0-18.0) g/dl Hct 42.0 (42.0-52.0) % MCV 87.7 (80.0-98.0) fL MCH 28.6 (27.0-33.0) pg MCHC 32.6 (31.0-36.0) g/dl RDW 12.8 (11.0-16.0) % Plt Count 295 D (160-400) X10*3/uL MPV 10.7 (9.4-12.4) fL Immature Gran % (Auto) 0.3 (0.0-0.4) % Neut % (Auto) 65.5 (45-73) % Lymph % (Auto) 22.1 (20-40) % [place] % (Auto) 9.4 (2-11) % Eos % (Auto) 2.3 (0-4) % Baso % (Auto) 0.4 (0-2) % Lymph # (Auto) 2.7 (1.2-4.9) X10*3/uL [place] # (Auto) 1.1 (0.1-1.2) X10*3/uL Eos # (Auto) 0.3 (0.0-0.4) X10*3/uL Baso # (Auto) 0.1 (0.0-0.2) X10*3/uL Abs Immat Gran (auto) 0.04 H (0.00-0.03) X10*3/uL Absolute Neuts (auto) 7.9 (2.0-8.3) x10*3/uL Absolute Nucleated RBC 0.000 (0.0-0.012) X10*3/uL Nucleated RBC % (auto) 0.0 (0.0-0.2) /100WBC Sodium 141 (135-145) mmol/L Potassium 4.3 (3.3-5.1) mmol/L Chloride 103 (96-108) mmol/L Carbon Dioxide 29 (22-29) mmol/L Anion Gap 13 (12-20) BUN 15 (9-16) mg/dL Creatinine 0.96 (0.5-1.4) mg/dL Estim Creat Clear Calc 104.7 Estimated GFR > 60 Random Glucose 97 (60-115) mg/dL Calcium 9.5 (8.4-10.2) mg/dL Total Bilirubin 1.3 H (0.0-1.0) mg/dL AST 23 (5-37) U/L ALT 27 (0-40) U/L Alkaline Phosphatase 81 (39-117) U/L Total Protein 7.0 (6.5-8.0) g/dL Albumin 4.3 (3.5-5.0) g/dL Urine Color YELLOW Urine Appearance CLEAR Urine pH 5.5 (5.0-8.0) Ur Specific [place] 1.025 (1.005-1.025) Urine Protein NEG (NEG-TRACE) MG/DL Urine Glucose (UA) NEG (NEG) MG/DL Urine Ketones NEG (NEG) MG/DL Urine Blood 1+ H (NEG) Urine Nitrite NEG (NEG) Ur Leukocyte Esterase NEG (NEG) Urine RBC 1-4 (0) /HPF Urine WBC 0-2 (0-4) /HPF Ur Squamous Epith Cells NONE /LPF Urine Bacteria NONE /LPF Imaging Data us scrotum: Radiologist's impression: Mild fullness right epididymal head with increased vascularity on color Doppler suggesting epididymitis. There is a small right hydrocele. No varicocele. LEFT: Left testicle measures 4.5 x 2.1 x 3.2 cm, volume 16 mL. The testicle is smooth in contour and uniform in echogenicity, or polyp with the contralateral left side. No intratesticular mass. There is symmetric bilateral color flow. Spectral Doppler shows low resistance arterial waveform. Left epididymal head is normal in size. No left hydrocele or varicocele is seen. US/US scrotum doppler IMPRESSION: -Mild fullness right epididymal head with a small hydrocele and increased vascularity suggesting epididymitis. ? -Normal bilateral testicles. No intratesticular mass or torsion. Dictated By: Jian León MD Signed By: <Electronically signed by Jian León MD in OV> 05/07/22 0878 Discharge Plan Discharge Clinical Impression: Epididymitis Patient Disposition: Home, Self-Care Instructions: Epididymitis (ED) Prescriptions: New doxycycline monohydrate 100 mg capsule 100 mg PO BID Qty: 14 0RF No Action atorvastatin 10 mg tablet 10 mg PO DAILY 90 Days Qty: 90 3RF Citrucel 500 mg tablet 500 mg PO DAILY Qty: 60 2RF nicotine [Nicoderm CQ] 14 mg/24 hr patch 24 hour 1 patch transdermal Q24H 28 Days Qty: 28 2RF lisinopril-hydrochlorothiazide 10-12.5 mg tablet 1 tab PO DAILY Qty: 90 3RF phenazopyridine [Pyridium] 100 mg tablet 100 mg PO TID PRN (Reason: spasm) 4 Days Qty: 12 0RF tramadol 50 mg tablet 50 mg PO Q6H PRN (Reason: pain (scale score 1-3)) Qty: 8 0RF tamsulosin 0.4 mg capsule 0.4 mg PO BEDTIME 14 Days Qty: 14 0RF naproxen 500 mg tablet 500 mg PO BID PRN (Reason: pain) 7 Days Qty: 14 0RF Referrals: Kirby White MD [Physician] - 1 day Stand Alone Forms: Work/School Release Interventions: ED Discharge Assessment Last Done: 05/07/22 17:34 Discharge Date/Time: 05/07/22 17:34
--- NOTE | 2022-05-07 16:09 | PC.NURSE ---
Pt comes in with complaints of R testicular pain and discoloration s/p lithtropsy on 04/29/22, denies any urinary S/S, N/V/D, fevers at this time. Pt is A&Ox4, plan for labs, urine sample and US of testicles. US at bedside now, call blakely within reach, will continue to monitor.
[2022-05-07 16:21] VITALS: BP 141/63; PULSE 84; RESP 18; TEMP 36.9; O2SAT 97
[2022-05-07 16:35] LABS: MANUAL DIFF FLAG NO
[2022-05-07 16:38] LABS: Basophils Absolute Auto 0.1 X10*3/uL (0.0-0.2); Basophils Percent Auto 0.4 % (0-2); Eosinophils Absolute Auto 0.3 X10*3/uL (0.0-0.4); Eosinophils Percent Auto 2.3 % (0-4); Hemoglobin 13.7 g/dl (14.0-18.0); Imm Gran Abs Auto 0.04 X10*3/uL (0.00-0.03); Imm Gran Pct Auto 0.3 % (0.0-0.4); Lymphocytes Absolute Auto 2.7 X10*3/uL (1.2-4.9); Lymphocytes Percent Auto 22.1 % (20-40); Mean Corpuscular HGB Conc 32.6 g/dl (31.0-36.0); Mean Corpuscular Hemoglobin 28.6 pg (27.0-33.0); Mean Corpuscular Volume 87.7 fL (80.0-98.0); Mean Platelet Volume 10.7 fL (9.4-12.4); Monocytes Absolute Auto 1.1 X10*3/uL (0.1-1.2); Monocytes Percent Auto 9.4 % (2-11); Neutrophils Absolute Auto 7.9 x10*3/uL (2.0-8.3); Neutrophils Percent Auto 65.5 % (45-73); Platelet Count 295 X10*3/uL (160-400); Red Blood Count 4.79 X10*6/uL (4.60-5.80); Red Cell Distribution Width 12.8 % (11.0-16.0)
[2022-05-07 16:49] LABS: Appearance Urine CLEAR; Color Urine YELLOW; Glucose Urine UA NEG (NEG); Leukocyte Esterase Urine NEG (NEG); Nitrite Urine NEG (NEG); PH 5.5 (5.0-8.0); Specific Gravity - Urine 1.025 (1.005-1.025); UACC Culture Trigger NO; Urine Blood 1+ (NEG); Urine Ketones NEG (NEG); Urine Protein NEG (NEG-TRACE)
[2022-05-07 16:55] LABS: Alanine Aminotransferase 27 U/L (0-40); Albumin Level 4.3 g/dL (3.5-5.0); Alkaline Phosphatase 81 U/L (39-117); Anion Gap 13 (12-20); Aspartate Amino Transferase 23 U/L (5-37); Bilirubin Total 1.3 mg/dL (0.0-1.0); Blood Urea Nitrogen 15 mg/dL (9-16); Calcium 9.5 mg/dL (8.4-10.2); Carbon Dioxide 29 mmol/L (22-29); Chloride 103 mmol/L (96-108); Creatinine Clr Calc Pharmacy 104.7; Estimated Glomerular Filt Rate > 60; Glucose Random 97 mg/dL (60-115); Potassium 4.3 mmol/L (3.3-5.1); Sodium 141 mmol/L (135-145)
[2022-05-07 17:04] LABS: WBC Urine 0-2 /HPF (0-4)
== END 2022-05-07 17:34 | disposition home or self-care (01) ==
PROVIDERS: Emergency Provider Emergency Medicine; PCP Family Medicine
DX: N45.1 Epididymitis (principal); N50.811 Right testicular pain; R60.0 Localized edema; F17.210 Nicotine dependence, cigarettes, uncomplicated; Z71.6 Tobacco abuse counseling; Z79.899 Other long term (current) drug therapy
CPT/HCPCS: 36415; 80053; 81001; 85025; 93975; 99284

== ENCOUNTER 2022-06-04 13:26 | Outpatient (REF) | payer BC, SELFPAY ==
--- NOTE | ~2022-06-04 | US_ITS ---
EXAMINATION: US RETROPERITONEAL LIMITED (RENAL ONLY) CLINICAL INFORMATION: Calculus of kidney. COMPARISON: XR abdomen KUB 04/29/2022. CT abdomen and pelvis without contrast 12/24/2021. TECHNIQUE: Real-time imaging of the kidneys. FINDINGS: RIGHT KIDNEY: 12.6 x 4.5 x 5.5 cm (SAG x AP x TRV). The kidney is normal in size, contour, and echogenicity. Renal cortical thickness is normal. No hydronephrosis. A crescentic anechoic perinephric collection is seen, with 10.5 x 3.0 x 8.1 cm anterior component and 0.8 x 0.4 x 0.7 cm lower pole component. At the lower pole, 8 mm and 7 mm nonobstructing calculi are seen, with twinkle artifact. At the upper pole medially, a 1.1 x 0.8 x 1.3 cm mildly complex cyst is seen, with fine septation. This shows no mural nodularity or associated color Doppler flow. A further 6 cm benign, simple cyst is seen at the interpolar aspect. LEFT KIDNEY: 11.8 x 5.6 x 4.9 cm (SAG x AP x TRV). The kidney is normal in size, contour, and echogenicity. Renal cortical thickness is normal. No focal parenchymal lesions or hydronephrosis. At the upper pole, 8 mm and 10 mm nonobstructing calculi are seen, with twinkle artifact. At the lower pole, a 7 mm nonobstructing calculus is seen, with twinkle artifact. US/US renal BI IMPRESSION: 1. There are multiple nonobstructing bilateral calculi, as detailed. No hydronephrosis is noted bilaterally. 2. A large right right perinephric anechoic fluid collection is seen, with dimensions as detailed. This may represent a urinoma or liquefied hematoma. 3. There are right renal cysts, one at the upper pole mildly complex, with fine septation. If relevant to patient management, this could be further evaluated with MRI or CT (renal mass protocol).
== END 2022-06-04 13:27 | disposition home or self-care (01) ==
LOC: HO.US 13:26
PROVIDERS: Visit Provider Urology
DX: N20.0 Calculus of kidney (principal)
CPT/HCPCS: 76775

== ENCOUNTER 2022-08-14 06:04 | Outpatient (REF) | payer BC, SELFPAY ==
[2022-08-14 07:14] LABS: Alanine Aminotransferase 16 U/L (0-40); Albumin Level 4.3 g/dL (3.5-5.0); Alkaline Phosphatase 79 U/L (39-117); Anion Gap 13 (12-20); Aspartate Amino Transferase 22 U/L (5-37); Blood Urea Nitrogen 9 mg/dL (9-16); Calcium 9.6 mg/dL (8.4-10.2); Carbon Dioxide 29 mmol/L (22-29); Chloride 104 mmol/L (96-108); Cholesterol 171 mg/dL; Estimated Glomerular Filt Rate > 60; Glucose Fasting 109 mg/dL (60-99); HDL Cholesterol 44 mg/dL; LDL Cholesterol Calculated 109 mg/dl; Potassium 3.9 mmol/L (3.3-5.1); Sodium 142 mmol/L (135-145); Total Protein 6.7 g/dL (6.5-8.0); Triglycerides 91 mg/dL
[2022-08-14 07:36] LABS: Prostate Specific Antigen Scr 0.53 ng/mL (<0.05-4.0); TSH reflex Free T4 1.01 uIU/mL (0.32-4.0)
[2022-08-14 08:15] LABS: Creatinine Urine 119.34 mg/dL; Microalbum/Creatinine Ratio Ur 5.8 ug/mg cr
== END 2022-08-14 06:05 | disposition home or self-care (01) ==
LOC: HO.LAB 06:04
PROVIDERS: PCP Family Medicine; Visit Provider Family Medicine
DX: Z00.00 Encounter for general adult medical examination without abnormal findings (principal); Z12.5 Encounter for screening for malignant neoplasm of prostate; I10 Essential (primary) hypertension
CPT/HCPCS: 36415; 80053; 80061; 82043; 84153; 84443

== ENCOUNTER 2022-10-29 15:35 | Outpatient (REF) | payer BC, SELFPAY ==
--- NOTE | ~2022-10-29 | US_ITS ---
EXAMINATION: US RETROPERITONEAL LIMITED (RENAL ONLY) CLINICAL INFORMATION: Calculus of kidney. COMPARISON: Renal ultrasound 06/04/2022. X-ray abdomen KUB 04/29/2022. CT abdomen and pelvis 12/24/2021. TECHNIQUE: Real-time imaging of the kidneys. FINDINGS: RIGHT KIDNEY: 12.1 x 4.6 x 5.7 cm (SAG x AP x TRV). The kidney is normal in size, contour, and echogenicity. Renal cortical thickness is normal. No hydronephrosis. There are multiple bilateral renal cysts with the largest cyst measuring 1.4 x 1.1 x 1.2 cm. There is an echogenic stone lower pole measuring 0.7 x 0.2 cm without caliectasis. There is a hypoechoic mass-like structure seen medially in the midpole measuring 4.6 x 3.9 x 3.5 cm. This is most likely residual perinephric hematoma. It has slightly increased in size since the last exam 06/04/2022. The larger perinephric hemorrhagic component from superior to inferior pole has completely resolved. LEFT KIDNEY: 11.3 x 5.6 x 5.6 cm (SAG x AP x TRV). The kidney is normal in size, contour, and echogenicity. Renal cortical thickness is normal. No calculi or focal parenchymal lesions. No hydronephrosis. There are echogenic linear structures seen throughout without twinkle artifact. US/US renal BI IMPRESSION: Multiple right renal cysts largest measuring 1.4 cm. Nonobstructive echogenic stone lower pole right kidney. Hypoechoic mass in the midpole cortex right kidney is likely residual hematoma which has slightly increased in size since the last exam. The larger perinephric hematoma/collection has completely resolved which on previous exam extended from the upper to lower pole. Grossly left kidney is unremarkable.
== END 2022-10-29 15:36 | disposition home or self-care (01) ==
LOC: HO.US 15:35
PROVIDERS: PCP Family Medicine; Visit Provider Urology
DX: N20.0 Calculus of kidney (principal)
CPT/HCPCS: 76775

== ENCOUNTER → 2022-12-15 08:29 | Outpatient (BNVA) | payer BC, SELFPAY | PROVIDERS: PCP Family Medicine; Visit Provider Urology | DX: Z13.89 Encounter for screening for other disorder (principal) ==

== ENCOUNTER 2023-04-12 19:40 | Emergency (ER) | payer BC, SELFPAY ==
--- NOTE | ~2023-04-12 | CT_ITS ---
EXAMINATION: CT ABDOMEN AND PELVIS WITHOUT CONTRAST CLINICAL INFORMATION: Right flank pain/pelvic pain COMPARISON: None available. TECHNIQUE: Multidetector volumetric imaging was performed from the superior aspect of the liver through the pubic symphysis. Sagittal and coronal reformatted images were obtained on the technologist's workstation. This CT examination was performed using dose optimization techniques as appropriate, variously including the following: *Automated exposure control *Adjustment of mA and/or kV according to patient size (this includes techniques or standardized protocols for targeted exams where dose is matched to indication/reason for exam; i.e. extremities or head) *Use of iterative reconstruction technique DLP: 739 mGy-cm FINDINGS: LUNG BASES: Mild atelectatic changes seen right lung base. The heart size is normal. LIVER, GALLBLADDER, AND BILIARY TREE: The liver is normal in size, shape, and attenuation. No focal hepatic lesion or biliary ductal dilatation is present. The gallbladder is unremarkable with no evidence of radiopaque gallstones, gallbladder wall thickening, or obvious pericholecystic inflammatory changes. PANCREAS: Unremarkable. SPLEEN: Unremarkable. ADRENAL GLANDS: Unremarkable. KIDNEYS AND URETERS: The left kidney appears normal size, shape and position with normal cortical thickness. The right kidney is normal size and shape. There is heterogeneous appearance and enlargement of the upper midpole right kidney suspicious for underlying lesion or inflammatory infectious etiology. There are punctate calcifications or calculi upper pole and lower pole left kidney and midpole right kidney. There is no caliectasis or hydronephrosis. BLADDER: Unremarkable. GASTROINTESTINAL TRACT: There is diffuse colonic diverticulosis without mural thickening or fat stranding. The cecum is almost midline with a small filling defect question stool on coronal image 38/7. No free air or free fluid seen. ABDOMINAL WALL: No significant hernia is appreciated. LYMPH NODES: Normal. VASCULAR: Unremarkable. PELVIC VISCERA: Unremarkable. OSSEOUS STRUCTURES: No aggressive lytic or sclerotic process seen CT/CT abdomen pelvis wo IV con IMPRESSION: Heterogeneous appearance and focal enlargement of upper/midpole right kidney. Previously called hematoma in ultrasound 10/29/2022. The findings are worrisome for underlying inflammation/infection. Tumor is not excluded. Hematoma should have resolved by now. Correlate with MRI abdomen with and without contrast. Colonic diverticulosis without diverticulitis. Fleischner guidelines were followed.
--- NOTE | ~2023-04-12 | XR_ITS ---
EXAMINATION: XR RIGHT HIP WITH AP PELVIS CLINICAL INFORMATION: Pain. COMPARISON: CT dated 12/24/2021 TECHNIQUE: AP and frog-leg lateral views of the right hip and an AP view of the pelvis. FINDINGS: Mild osteoarthritis is present in both hips, characterized by nonuniform cephalad joint space narrowing and marginal osteophytes. Additional mild osteoarthritis in the SI joints. Prominent facet arthropathy on the right L5-S1. Mild degenerative disc disease. No acute fractures. Bone mineralization appears normal. Soft tissues are unremarkable. XR/XR hip RT w PEL1V IMPRESSION: 1. Mild osteoarthritis in the hips and SI joints. No acute osseous findings 2. Prominent facet arthropathy on the right at L5-S1.
--- NOTE | ~2023-04-12 | US_ITS ---
EXAMINATION: US VENOUS ULTRASOUND WITH DOPPLER LOWER EXTREMITY, RIGHT CLINICAL INFORMATION: Pain. COMPARISON: None available. TECHNIQUE: Ultrasound of the deep veins is performed from the hip to the calf with compression sonography and color and pulse Doppler assessment. Spectral analysis with color-flow imaging is performed. FINDINGS: There is normal venous compression and respiratory variation and augmented flow. The visualized common femoral vein, superficial femoral vein, profunda femoral vein, popliteal vein, and the trifurcation region shows no evidence of deep venous thrombosis. There is no significant popliteal fossa cyst. If the patient's symptoms persist, followup ultrasound in 5 days 7 days might be of value to exclude proximal propagation from a non-visualized calf vein. Morphologically normal-appearing lymph node with fatty zohreh and thin mantle in the right groin. Short axis diameter 0.6 cm. US/US venous duplex LE RT IMPRESSION: No DVT demonstrated in the right lower extremity.
[2023-04-12 19:50] VITALS: BP 175/74; PULSE 95; RESP 16; TEMP 37; O2SAT 98; BMI 29.3
--- NOTE | 2023-04-12 19:50 | ED.GENADULT ---
HPI - General Adult General Chief complaint: Abdominal Pain Stated complaint: pain in right hip area Time Seen by Provider: 04/12/23 22:49 Source: patient Mode of arrival: ambulatory Limitations: no limitations History of Present Illness HPI narrative: Patient comes to the emergency room complaining of right lower quadrant/right hip pain radiating towards the right testicle and right thigh. Patient denies any history of falls. No history of DVTs. Patient states that he can flex and extend his hip without any problem. However, if patient needs to put any weight on the hip, he can barely walk. The pain escalates to 10/10. Patient has tried ibuprofen at home with no relief. Patient states that he has had kidney stones in the past but does not feel like kidney stones, denies any UTI symptoms. Denies any bulging hernias Related Data Previous Rx's Medication Instructions Recorded methylcellulose (laxative) 500 mg 500 mg PO DAILY #60 tabs 10/21/21 tablet (Citrucel) lisinopril 10 1 tab PO DAILY #90 tabs 04/22/22 mg-hydrochlorothiazide 12.5 mg tablet naproxen 500 mg tablet 500 mg PO BID PRN pain 7 days #14 04/29/22 tabs doxycycline monohydrate 100 mg 100 mg PO BID #14 caps 05/07/22 capsule nicotine 21 mg/24 hr daily 1 patch transdermal Q24H 28 days 07/07/22 transdermal patch #28 ea atorvastatin 10 mg tablet 10 mg PO DAILY 90 days #90 tabs 07/30/22 allopurinol 100 mg tablet 100 mg PO DAILY 90 days #90 tabs 12/07/22 pyridoxine (vitamin B6) 50 mg 50 mg PO DAILY 90 days #90 tabs 12/15/22 tablet oxycodone 5 mg tablet 5 mg PO BID PRN pain #7 tabs 04/13/23 Allergies Allergy/AdvReac Type Severity Reaction Status Date / Time No Known Allergies Allergy Mild NKA Verified 12/15/22 08:32 Review of Systems Review of Systems: Constitutional : No Weight loss, No Fever, No Chills, No Night Sweats, No Fatigue, No Malaise ENT/Mouth : No Hearing loss, No Ear Pain, No Nasal Congestion, No Sinus Pain, No Hoarseness, No sore throat, No Rhinorrhea, No Swallowing Difficulty Eyes: No Eye Pain, No Swelling, No Redness, No Foreign Body, No Discharge, No Vision Changes Cardiovascular : No Chest Pain, No SOB, No Dyspnea on Exertion, No Orthopnea, No Edema, No Palpitations Respiratory : No Cough, No Sputum, No Wheezing, No Smoke Exposure, No Dyspnea Gastrointestinal : No Nausea, No Vomiting, No Diarrhea, No Constipation, No abdominal Pain, No Hematochezia, No Melena Genitourinary : no irregular bleeding, No Dysuria, No Urinary Frequency, No Hematuria, No Urinary Incontinence, No Urgency, No Flank Pain, No Urinary Flow Changes, No Hesitancy Musculoskeletal : Complaining of right hip pain, pain is minimal with movement but significant with weight-bearing, No Myalgias, No Joint Swelling Skin : No Skin Lesions, No rash Neuro : No Weakness, No Numbness, No Paresthesias, No Loss of Consciousness, No Dizziness, No Headache Psych : No Anxiety/Panic, No Depression, No SI/HI/AH/VH, No Social Issues, Heme/Lymph: No Bruising, No Bleeding,No Lymphadenopathy Endocrine : No Polyuria, No Polydipsia, No Temperature Intolerance [facility] Past Medical History Medical History Actinic keratosis Elevated cholesterol History of anal fissures HTN (hypertension) Kidney stones Smoker Surgical History History of ankle surgery History of surgery on arm Hx of colonoscopy Family History Family History Other Mental health disorder Social History Social History Housing: House Patient Tobacco Use Status: Current everyday Tobacco user Tobacco use type: Cigarette Cigarettes Per Day: 5 Years Smoked: 25 e-Cigarette/Vaping Use: Never Used Second Hand Smoke Exposure: No Use of substances other than those prescribed or required for medical reasons: No Advance Directives: No Advance Directives Information Provided: No service: No Current occupational status: employed Current occupation: [employer] Current occupational exposures/hazards: No Cognitive needs: No Hearing needs: No Vision needs: No Physical Exam ED Vital Signs: Vital Signs - 24 hr 04/12/23 19:50 04/12/23 22:58 04/13/23 00:34 Temperature 98.6 F 98.2 F 97.8 F Pulse Rate 95 81 73 Respiratory Rate 16 16 16 Blood Pressure 175/74 H 137/67 133/67 Pulse Oximetry 98 96 94 Oxygen Delivery Method Room Air Room Air Room Air BMI result Body Mass Index 29.3 Const Other: Appearance: Alert. Oriented X3. No acute distress. Eyes: Pupils equal, round and reactive to light. ENT: Pharynx normal. Neck: Normal inspection. Neck supple. No lymph nodes noted. No crepitus CVS: Normal heart rate and rhythm. Pulses normal. Normal S1 and S2 Respiratory: No respiratory distress. Breath sounds normal. No Wheezing. No rales Abdomen: Soft and nontender. No rigidity. No distention. Skin: Skin warm and dry. Normal skin color. Normal skin turgor. Extremities: No lower extremity edema. No Lacerations. No Rash. No erythema over the hip joint, no swelling the patient is able to flex and extend the hip when he is in bed. But can barely put any weight on it due to severe pain. Neuro: Oriented X 3. No motor deficit. No sensory deficit. Moving all extremities. No slurred speech. CN 2 through 12 grossly intact Psych: calm, cooperative, normal affect Course Course Course Narrative: 62-year-old male presents for evaluation of atraumatic right hip pain has been getting worse throughout the day. Plan for x-ray of the right hip and ultrasound of the right lower extremity Medications Administered Discontinued Medications Generic Name Dose Route Start Last Admin Trade Name Freq PRN Reason Stop Dose Admin Morphine Sulfate 4 mg 04/12/23 23:10 04/13/23 00:05 Morphine Sulfate 4 Mg/Ml Cartridge IVPUSH 04/12/23 23:11 4 mg ONCE ONE Administration Protocol Medical Decision Making Medical Decision Making [facility] Narrative: -venous duplex is negative for DVT -hip and pelvis x-ray shows mild osteoarthritis in the hips and SI joints -his fever patient has acute onset right-sided hip pain without any trauma. The go ahead and order a CT scan of the abdomen pelvis and we can see the hip as well -labs have been ordered to rule out any possibility of underlying infection -patient has good range of motion with flexion extension without any weight-bearing, septic joint not suspected at this time. -patient likely has a pulled inguinal ligament versus pelvic muscle. CT scan did not show any ulcers abnormality. -however, I discussed with the patient the CT findings regarding his right kidney. Back in October of 2022, patient had an ultrasound done, this was initially thought to be hematoma. However, this focal enlargement of the upper/middle pole of the right kidney is still present. This could be inflammation versus infection. Unlikely to be infection, white blood cell count within normal limits, urine within normal limits, no fever chills. Tumor is not excluded either. Hematoma should have been resolved by now. Patient will need an MRI -I considered admitting the patient to get the MRI done in the morning. I discussed the patient with Dr. Martinez, since this was an incidental finding, patient will not be admitted, patient will follow-up with his primary care physician and with Urology. -patient still having upper right leg pain, pain likely musculoskeletal versus bursitis. The patient will be provided with crutches Admission/Observation Consideration of admission/observation: Escalation of care including admission/observation considered Consult Healthcare Provider Management of the patient was discussed with: Hospitalist Lab Data MDM Lab Attestation statement: I reviewed the patient's lab results. 04/12/23 23:36 04/12/23 23:36 Labs: Lab Results 04/12/23 04/12/23 04/12/23 Range/Units 23:36 23:36 23:36 WBC 10.0 (4.8-10.8) X10*3/uL RBC 5.28 (4.60-5.80) X10*6/uL Hgb 15.6 (14.0-18.0) g/dl Hct 46.4 (42.0-52.0) % MCV 87.9 (80.0-98.0) fL MCH 29.5 (27.0-33.0) pg MCHC 33.6 (31.0-36.0) g/dl RDW 13.1 (11.0-16.0) % Plt Count 180 D (160-400) X10*3/uL MPV 11.5 (9.4-12.4) fL Immature Gran % (Auto) 0.3 (0.0-0.4) % Neut % (Auto) 57.9 (45-73) % Lymph % (Auto) 26.7 (20-40) % [place] % (Auto) 12.3 H (2-11) % Eos % (Auto) 2.4 (0-4) % Baso % (Auto) 0.4 (0-2) % Lymph # (Auto) 2.7 (1.2-4.9) X10*3/uL [place] # (Auto) 1.2 (0.1-1.2) X10*3/uL Eos # (Auto) 0.2 (0.0-0.4) X10*3/uL Baso # (Auto) 0.0 (0.0-0.2) X10*3/uL Abs Immat Gran (auto) 0.03 (0.00-0.03) X10*3/uL Absolute Neuts (auto) 5.8 (2.0-8.3) x10*3/uL Absolute Nucleated RBC 0.000 (0.0-0.012) X10*3/uL Nucleated RBC % (auto) 0.0 (0.0-0.2) /100WBC ESR 2 (0-15) MM/HR Sodium 141 (135-145) mmol/L Potassium 3.8 (3.3-5.1) mmol/L Chloride 105 (96-108) mmol/L Carbon Dioxide 25 (22-29) mmol/L Anion Gap 15 (12-20) BUN 14 (9-16) mg/dL Creatinine 0.78 (0.5-1.4) mg/dL Estim Creat Clear Calc 117.1 Estimated GFR > 60 Random Glucose 109 (60-115) mg/dL Calcium 9.9 (8.4-10.2) mg/dL C-Reactive Protein 0.42 (< or = 0.50) mg/dL Urine Color Urine Appearance Urine pH (5.0-9.0) Ur Specific [place] (1.005-1.025) Urine Protein (Neg-Trace) mg/dL Urine Glucose (UA) (Negative) mg/dL Urine Ketones (Negative) mg/dL Urine Blood (Negative) Urine Nitrite (Negative) Ur Leukocyte Esterase (Negative) Urine RBC (0-2) /HPF Urine WBC (0-5) /HPF Ur Squamous Epith Cells (0-2) /HPF Urine Bacteria (None Seen) Hyaline Casts (0-2) /LPF 04/13/23 Range/Units 00:36 WBC (4.8-10.8) X10*3/uL RBC (4.60-5.80) X10*6/uL Hgb (14.0-18.0) g/dl Hct (42.0-52.0) % MCV (80.0-98.0) fL MCH (27.0-33.0) pg MCHC (31.0-36.0) g/dl RDW (11.0-16.0) % Plt Count (160-400) X10*3/uL MPV (9.4-12.4) fL Immature Gran % (Auto) (0.0-0.4) % Neut % (Auto) (45-73) % Lymph % (Auto) (20-40) % [place] % (Auto) (2-11) % Eos % (Auto) (0-4) % Baso % (Auto) (0-2) % Lymph # (Auto) (1.2-4.9) X10*3/uL [place] # (Auto) (0.1-1.2) X10*3/uL Eos # (Auto) (0.0-0.4) X10*3/uL Baso # (Auto) (0.0-0.2) X10*3/uL Abs Immat Gran (auto) (0.00-0.03) X10*3/uL Absolute Neuts (auto) (2.0-8.3) x10*3/uL Absolute Nucleated RBC (0.0-0.012) X10*3/uL Nucleated RBC % (auto) (0.0-0.2) /100WBC ESR (0-15) MM/HR Sodium (135-145) mmol/L Potassium (3.3-5.1) mmol/L Chloride (96-108) mmol/L Carbon Dioxide (22-29) mmol/L Anion Gap (12-20) BUN (9-16) mg/dL Creatinine (0.5-1.4) mg/dL Estim Creat Clear Calc Estimated GFR Random Glucose (60-115) mg/dL Calcium (8.4-10.2) mg/dL C-Reactive Protein (< or = 0.50) mg/dL Urine Color Yellow Urine Appearance Clear Urine pH 5.5 (5.0-9.0) Ur Specific [place] 1.010 (1.005-1.025) Urine Protein Negative (Neg-Trace) mg/dL Urine Glucose (UA) Negative (Negative) mg/dL Urine Ketones Negative (Negative) mg/dL Urine Blood Negative (Negative) Urine Nitrite Negative (Negative) Ur Leukocyte Esterase Negative (Negative) Urine RBC 0-2 (0-2) /HPF Urine WBC 0-5 (0-5) /HPF Ur Squamous Epith Cells 0-2 (0-2) /HPF Urine Bacteria None Seen (None Seen) Hyaline Casts 0-2 (0-2) /LPF Radiology Impression Discussion of test interpretation with radiology: I have reviewed the radiologist's reading. Radiologist Impression: FINDINGS: LUNG BASES: Mild atelectatic changes seen right lung base. The heart size is normal.? LIVER, GALLBLADDER, AND BILIARY TREE: The liver is normal in size, shape, and attenuation. No focal hepatic lesion or biliary ductal dilatation is present. The gallbladder is unremarkable with no evidence of radiopaque gallstones, gallbladder wall thickening, or obvious pericholecystic inflammatory changes.? PANCREAS: Unremarkable.? SPLEEN: Unremarkable.? ADRENAL GLANDS: Unremarkable.? KIDNEYS AND URETERS: The left kidney appears normal size, shape and position with normal cortical thickness. The right kidney is normal size and shape. There is heterogeneous appearance and enlargement of the upper midpole right kidney suspicious for underlying lesion or inflammatory infectious etiology. There? are punctate calcifications or calculi upper pole and lower pole left kidney and midpole right kidney. There is no caliectasis or hydronephrosis. BLADDER: Unremarkable.? GASTROINTESTINAL TRACT: There is diffuse colonic diverticulosis without mural thickening or fat stranding. The cecum is almost midline with a small filling defect question stool on coronal image 38/7. No free air or free fluid seen. ABDOMINAL WALL: No significant hernia is appreciated.? LYMPH NODES: Normal. VASCULAR: Unremarkable. PELVIC VISCERA: Unremarkable.? OSSEOUS STRUCTURES: No aggressive lytic or sclerotic process seen? CT/CT abdomen pelvis wo IV con IMPRESSION: Heterogeneous appearance and focal enlargement of upper/midpole right kidney. Previously called hematoma in ultrasound 10/29/2022. The findings are worrisome for underlying inflammation/infection. Tumor is not excluded. Hematoma should have resolved by now. Correlate with MRI abdomen with and without contrast. ? Colonic diverticulosis without diverticulitis. ? FINDINGS: There is normal venous compression and respiratory variation and augmented flow. The visualized common femoral vein, superficial femoral vein, profunda femoral vein, popliteal vein, and the trifurcation region shows no evidence of deep venous thrombosis. ? There is no significant popliteal fossa cyst. If the patient's symptoms persist, followup ultrasound in 5 days 7 days might be of value to exclude proximal propagation from a non-visualized calf vein. Morphologically normal-appearing lymph node with fatty zohreh and thin mantle in the right groin. Short axis diameter 0.6 cm. US/US venous duplex LE RT IMPRESSION: No DVT demonstrated in the right lower extremity. FINDINGS: Mild osteoarthritis is present in both hips, characterized by nonuniform cephalad joint space narrowing and marginal osteophytes. Additional mild osteoarthritis in the SI joints. Prominent facet arthropathy on the right L5-S1. Mild degenerative disc disease. No acute fractures. Bone mineralization appears normal. Soft tissues are unremarkable. XR/XR hip RT w PEL1V IMPRESSION: 1.? Mild osteoarthritis in the hips and SI joints. No acute osseous findings 2.? Prominent facet arthropathy on the right at L5-S1. Discharge Plan Discharge Clinical Impression: Acute hip pain, Abnormal CT scan, kidney Patient Disposition: Home, Self-Care Instructions: Hip Pain (ED) Additional Instructions: Your CT scan shows an abnormality of the right kidney. You will likely need an MRI. Please follow-up with your primary care physician and urologist tomorrow. If you have any worsening or new symptoms, please return to the emergency room or call 911 Prescriptions: New oxycodone 5 mg tablet 5 mg PO BID PRN (Reason: pain) Qty: 7 0RF Rx Instructions: Partial Fill upon patient request. No Action Citrucel 500 mg tablet 500 mg PO DAILY Qty: 60 2RF lisinopril-hydrochlorothiazide 10-12.5 mg tablet 1 tab PO DAILY Qty: 90 3RF atorvastatin 10 mg tablet 10 mg PO DAILY 90 Days Qty: 90 3RF allopurinol 100 mg tablet 100 mg PO DAILY 90 Days Qty: 90 1RF naproxen 500 mg tablet 500 mg PO BID PRN (Reason: pain) 7 Days Qty: 14 0RF doxycycline monohydrate 100 mg capsule 100 mg PO BID Qty: 14 0RF nicotine 21 mg/24 hr patch 24 hour 1 patch transdermal Q24H 28 Days Qty: 28 2RF pyridoxine (vitamin B6) 50 mg tablet 50 mg PO DAILY 90 Days Qty: 90 3RF Referrals: Kirby White MD [Physician] - 04/13/23 Stand Alone Forms: Work/School Release
[2023-04-12 22:58] VITALS: BP 137/67; PULSE 81; RESP 16; TEMP 36.8; O2SAT 96
[2023-04-12 23:41] LABS: MANUAL DIFF FLAG NO
[2023-04-12 23:42] LABS: Basophils Percent Auto 0.4 % (0-2); Eosinophils Absolute Auto 0.2 X10*3/uL (0.0-0.4); Eosinophils Percent Auto 2.4 % (0-4); Hematocrit 46.4 % (42.0-52.0); Hemoglobin 15.6 g/dl (14.0-18.0); Imm Gran Abs Auto 0.03 X10*3/uL (0.00-0.03); Imm Gran Pct Auto 0.3 % (0.0-0.4); Lymphocytes Absolute Auto 2.7 X10*3/uL (1.2-4.9); Lymphocytes Percent Auto 26.7 % (20-40); Mean Corpuscular HGB Conc 33.6 g/dl (31.0-36.0); Mean Corpuscular Hemoglobin 29.5 pg (27.0-33.0); Mean Corpuscular Volume 87.9 fL (80.0-98.0); Mean Platelet Volume 11.5 fL (9.4-12.4); Monocytes Absolute Auto 1.2 X10*3/uL (0.1-1.2); Monocytes Percent Auto 12.3 % (2-11); Neutrophils Absolute Auto 5.8 x10*3/uL (2.0-8.3); Neutrophils Percent Auto 57.9 % (45-73); Platelet Count 180 X10*3/uL (160-400); Red Blood Count 5.28 X10*6/uL (4.60-5.80); Red Cell Distribution Width 13.1 % (11.0-16.0)
[2023-04-12 23:56] LABS: Anion Gap 15 (12-20); Blood Urea Nitrogen 14 mg/dL (9-16); C Reactive Protein 0.42 mg/dL (< or = 0.50); Calcium 9.9 mg/dL (8.4-10.2); Carbon Dioxide 25 mmol/L (22-29); Chloride 105 mmol/L (96-108); Creatinine Clr Calc Pharmacy 117.1; Estimated Glomerular Filt Rate > 60; Glucose Random 109 mg/dL (60-115); Potassium 3.8 mmol/L (3.3-5.1); Sodium 141 mmol/L (135-145)
[2023-04-13] MEDS: Morphine Sulfate 4 MG/ML CARTRIDGE IVPUSH (00:05)
[2023-04-13 00:14] LABS: Erythrocyte Sedimentation Rate 2 MM/HR (0-15)
[2023-04-13 00:34] VITALS: BP 133/67; PULSE 73; RESP 16; TEMP 36.6; O2SAT 94
[2023-04-13 00:43] LABS: Appearance Urine Clear; Color Urine Yellow; Glucose Urine UA Negative (Negative); Leukocyte Esterase Urine Negative (Negative); Nitrite Urine Negative (Negative); PH 5.5 (5.0-9.0); Urine Blood Negative (Negative); Urine Ketones Negative (Negative); Urine Protein Negative (Neg-Trace)
[2023-04-13 00:46] LABS: Bacteria Urine None Seen (None Seen); Hyaline Casts Urine 0-2 /LPF (0-2); RBC Urine 0-2 /HPF (0-2); Squamous Epithelial Cell Urine 0-2 /HPF (0-2); WBC Urine 0-5 /HPF (0-5)
[2023-04-13] MEDS: oxyCODONE HCl Immed Release 5 MG TABLET PO (02:07)
== END 2023-04-13 02:18 | disposition home or self-care (01) ==
PROVIDERS: Physician Assistant; Emergency Provider Emergency Medicine
DX: M25.551 Pain in right hip (principal); R60.0 Localized edema; Z79.899 Other long term (current) drug therapy
CPT/HCPCS: 36415; 73502; 74176; 80048; 81001; 85025; 85652; 86140; 93971; 96374; 99284; J2270

== ENCOUNTER 2023-05-18 15:20 | Outpatient (AMB) | payer BC, SELFPAY ==
--- NOTE | 2023-05-18 15:37 | MHC.OFFVIS ---
Intake Intake Visit Reasons: Abnormal radiologic findings on CT kidney Intake Note: Patient is present for Follow Up ct scan findings Urology Med: Vitamin B6 Antibiotic Allergy: None Blood Thinner: none Allergies No Known Allergies Allergy (Mild, Verified 05/18/23 15:38) NKA HPI HPI Comments History of Present Illness Details Coleman is very pleasant male. He is a patient Dr. Jackson. He is seen for the following urologic conditions - nephrolithiasis CT scan from recent hospital admission with question of right upper pole suspicious lesion Performed without contrast Repeat with MRI with contrast Most likely phenomena is residual damage from prior ESWL Nephrolithiasis Initial presentation 02/13 to emergency room Imaging - 02/13 CT scan with 5 mm proximal left ureteric stone and 1 cm stone in right kidney - 06/15 US 5mm right kidney - 11/16 US 5mm right kidney - 04/16 CT ?heterogeneous appearance and enlargement of the upper midpole right kidney suspicious for underlying lesion or inflammatory infectious etiology No prior stone formation Intervention - 05/15 ESWL Right PFSH Medical History Actinic keratosis Elevated cholesterol History of anal fissures HTN (hypertension) Kidney stones Smoker Surgical History History of ankle surgery History of surgery on arm Hx of colonoscopy Family History Other Mental health disorder Social History Housing: House Patient Tobacco Use Status: Current everyday Tobacco user Tobacco use type: Cigarette Cigarettes Per Day: 5 Years Smoked: 25 e-Cigarette/Vaping Use: Never Used Second Hand Smoke Exposure: No service: No Current occupational status: employed Current occupation: Hired Current occupational exposures/hazards: No Cognitive needs: No Hearing needs: No Vision needs: No Review of Systems Const Denies chills and Denies fever(s) Card Reports no additional complaints and Denies syncope Resp Denies cough GI Denies abdominal pain and Denies heartburn Reports as per HPI and Denies change in libido Neuro Denies syncope Psych Denies change in libido Endo Denies change in libido Physical Exam Const General: cooperative, healthy appearing, comfortable and no acute distress Orientation/consciousness: patient oriented x3 HEENT Face and sinus: Yes normal facial exam Mouth: moist mucous membranes Neck Neck: Yes normal visual inspection, Yes full ROM and Yes trachea midline Chest Chest palpation & inspection: normal inspection of the chest Resp Effort & Inspection: normal respiratory effort, able to speak in complete sentences and no respiratory distress GI Inspection: Yes normal to inspection Back/Spine/Pelvis Cervical Spine: normal cervical lordosis Thoracic/Lumbar Spine: thoracic and lumbar spine normal to inspection Skin General skin exam: no rashes or lesions noted Neuro General: patient oriented x3, gait normal, tone normal and moves all extremities Extrem General: Yes normal to inspection and Yes capillary refill normal Assessment & Plan Assessment & Plan (1) Nephrolithiasis: Code(s): N20.0 - Calculus of kidney (2) Hematoma: Code(s): T14.8XXA - Other injury of unspecified body region, initial encounter Plan Renal MRI Patient Instructions: Imaging studies, laboratory and physical exam results were discussed and reviewed in detail. No major barriers to patient understanding were identified. An opportunity to ask questions regarding the treatment plan was provided. All questions were answered. The patient expressed understanding and agreement with the above treatment plan. The patient is aware they should contact our office by phone for worsening of their current condition or the appearance of new urologic symptoms. Compliance is encouraged with any medications and followup testing that is ordered. It is a privilege to participate in the urologic care of your patient. If you have any questions or concerns regarding treatment for the above conditions, or other urologic issues, please do not hesitate to contact me. The office telephone contact is [phone]. This note is constructed using voice recognition software. While every effort has been made to ensure accuracy broaching machine operator errors may have been included. Yours sincerely, Dr Kirby White MD, [facility] - Urology Providers of Expert, Compassionate Care for the Genitourinary System Coding Level of Care Code Est Pt Level 3 (30081) Diagnoses Nephrolithiasis N20.0 Hematoma T14.8XXA
== END 2023-05-18 16:07 | disposition home or self-care (01) ==
PROVIDERS: PCP Family Medicine; Visit Provider Urology
DX: N20.0 Calculus of kidney (principal); T14.8XXA Other injury of unspecified body region, initial encounter
CPT/HCPCS: 99213

== ENCOUNTER → 2023-05-18 15:20 | Outpatient (BNVA) | payer BC, SELFPAY | PROVIDERS: PCP Family Medicine; Visit Provider Urology ==

== ENCOUNTER 2023-06-10 15:52 | Outpatient (REF) | payer BC, SELFPAY ==
--- NOTE | ~2023-06-10 | MR_ITS ---
EXAMINATION: MR KIDNEY WITHOUT/WITH CONTRAST CLINICAL INFORMATION: Abnormal imaging findings. COMPARISON: CT abdomen and pelvis from 12/24/2021 and 04/12/2023. Renal ultrasound from 06/04/2022 and 10/29/2022 TECHNIQUE: MR imaging of the abdomen focused on the kidneys was performed on a high-field magnet using standard sequences without and with intravenous administration of 10 mL Gadavist. FINDINGS: LUNG BASES: Normal. No pulmonary consolidation or pleural effusion. LIVER: Liver has normal size and contour. The parenchyma exhibits mild decreased signal intensity on [id number] compared to in-phase images, consistent with mild steatosis. No focal liver lesion or intrahepatic ductal dilatation. GALLBLADDER AND BILIARY TREE: Gallbladder is chronically underdistended. There is a region of chronic thickening of the gallbladder wall, similar compared to 12/24/2021. Also, there are foci of T2 signal hyperintensity of the gallbladder wall. Note that segmental thickening of the gallbladder wall is also visible on the CT exam from 11/13/2006. The constellation of abnormalities suggests presence of chronic adenomyomatosis. Common bile duct measures up to 0.5 cm diameter. PANCREAS: No edema, pancreatic ductal dilatation or mass. SPLEEN: Normal. ADRENAL GLANDS: Normal. KIDNEYS: Kidneys are normal in size and enhance symmetrically. No hydronephrosis. There are a few simple cysts of the right kidney. No renal imaging follow-up is recommended for simple cysts. Also, there is a 0.8 x 2 cm focus of subcapsular or pericapsular fluid surrounded by a hypointense rim at the anterolateral right kidney. This has the appearance of an old liquefied hematoma. No solid contrast enhancing renal mass. BOWEL AND PERITONEUM: Stomach is unremarkable. No dilated bowel loops. Diverticula of the colon without evidence of diverticulitis. No mesenteric fat stranding or abdominal free fluid. VASCULATURE: Abdominal aorta is normal in caliber and its visualized branches are widely patent. Inferior vena cava is normal. Splenic, portal and hepatic veins are normal. LYMPH NODES: No pathologic sized lymph nodes in the abdomen. SKELETAL: Unremarkable. MR/MR kidney wo/w con IMPRESSION: * No evidence of renal tumor. * Old liquefied subcapsular hematoma of the anterolateral right kidney. * Gallbladder is chronically abnormal, consistent with adenomyomatosis. * Colonic diverticulosis without diverticulitis.
[2023-06-10] MEDS: gadobutroL 10 ML VIAL IVPUSH (16:58)
== END 2023-06-10 15:53 | disposition home or self-care (01) ==
LOC: HO.MRI 15:52
PROVIDERS: PCP Family Medicine; Visit Provider Nurse Practitioner Family
DX: R93.429 Abnormal radiologic findings on diagnostic imaging of unspecified kidney (principal)
CPT/HCPCS: 74181; A9585

== ENCOUNTER 2023-06-25 15:15 | Outpatient (AMB) | payer BC, SELFPAY ==
--- NOTE | 2023-06-25 15:17 | MHC.OFFVIS ---
Intake Intake Visit Reasons: 1m/MRI(set) Intake Note: Patient is present for Telephone Urology Med: Vitamin B6 Antibiotic Allergy: None Blood Thinner: None [facility]acy: [facility] Allergies No Known Allergies Allergy (Mild, Verified 06/25/23 15:19) NKA HPI HPI Comments History of Present Illness Details Coleman is very pleasant male. He is a patient Dr. Jackson. He is seen for the following urologic conditions - nephrolithiasis Telemedicine Evaluation [address] [place] Video attempted Here for discussion of repeat MRI CT scan had question of right upper pole suspicious lesion Most likely phenomena regard to residual damage from prior ESWL Confirmation MRI is bruising from prior ESWL Continue interval surveillance Nephrolithiasis Initial presentation 02/13 to emergency room Imaging - 02/13 CT scan with 5 mm proximal left ureteric stone and 1 cm stone in right kidney - 06/15 US 5mm right kidney - 11/16 US 5mm right kidney - 04/16 CT ?heterogeneous appearance and enlargement of the upper midpole right kidney suspicious for underlying lesion or inflammatory infectious etiology No prior stone formation Intervention - 05/15 ESWL Right PFSH Medical History Actinic keratosis Elevated cholesterol History of anal fissures HTN (hypertension) Kidney stones Smoker Surgical History History of ankle surgery History of surgery on arm Hx of colonoscopy Family History Other Mental health disorder Social History Housing: House Patient Tobacco Use Status: Current everyday Tobacco user Tobacco use type: Cigarette Cigarettes Per Day: 5 Years Smoked: 25 e-Cigarette/Vaping Use: Never Used Second Hand Smoke Exposure: No service: No Current occupational status: employed Current occupation: warehouse woker Current occupational exposures/hazards: No Cognitive needs: No Hearing needs: No Vision needs: No Review of Systems Const All systems reviewed & are unremarkable except as noted in HPI and below Reports no additional complaints Resp Reports no additional complaints GI Reports no additional complaints Reports as per HPI Musc Reports no additional complaints Physical Exam Telemedicine evaluation Appropriate responses Regular breathing rate and rhythm HEENT Head: Yes normal to inspection Ears: hearing grossly normal bilaterally Eyes General: appearance normal, both eyes and all related structures Neck Neck: Yes normal visual inspection Chest Chest palpation & inspection: normal inspection of the chest Resp Effort & Inspection: normal respiratory effort and able to speak in complete sentences Assessment & Plan Assessment & Plan (1) Nephrolithiasis: Code(s): N20.0 - Calculus of kidney (2) Renal hematoma, right: Code(s): S37.011A - Minor contusion of right kidney, initial encounter Qualifiers: Encounter type: subsequent encounter Qualified Code(s): S37.011D - Minor contusion of right kidney, subsequent encounter Plan 6 month renal ultrasound Orders: Orders US renal BI 6 Months N20.0 - Calculus of kidney Patient Instructions: Imaging studies, laboratory and physical exam results were discussed and reviewed in detail. No major barriers to patient understanding were identified. An opportunity to ask questions regarding the treatment plan was provided. All questions were answered. The patient expressed understanding and agreement with the above treatment plan. The patient is aware they should contact our office by phone for worsening of their current condition or the appearance of new urologic symptoms. Compliance is encouraged with any medications and followup testing that is ordered. It is a privilege to participate in the urologic care of your patient. If you have any questions or concerns regarding treatment for the above conditions, or other urologic issues, please do not hesitate to contact me. The office telephone contact is [phone]. This note is constructed using voice recognition software. While every effort has been made to ensure accuracy paint mixer machine errors may have been included. Yours sincerely, Dr Kirby White MD, [facility] - Urology Providers of Expert, Compassionate Care for the Genitourinary System Telehealth Telehealth Location of provider rendering services: practice address Location of patient: address on file Patient Identification confirmed using: Name, : Yes Telehealth method: video Patient verbally consented to treatment: Yes Patient verbally consented to billing insurance company: Yes Patient informed of any privacy concerns related to visit: Yes Coding Level of Care Code Tele Est Pt Level 3 (08204) Diagnoses Nephrolithiasis N20.0 Hematoma of right kidney, subsequent encounter S37.011D Encounter type: subsequent encounter
== END 2023-06-25 16:38 | disposition home or self-care (01) ==
LOC: HO.HUSH 15:16
PROVIDERS: PCP Family Medicine; Visit Provider Urology
DX: N20.0 Calculus of kidney (principal); S37.011D Minor contusion of right kidney, subsequent encounter
CPT/HCPCS: 99213

== ENCOUNTER → 2023-06-25 15:15 | Outpatient (BNVA) | payer BC, SELFPAY | PROVIDERS: PCP Family Medicine; Visit Provider Urology ==

== ENCOUNTER 2023-12-01 15:51 | Outpatient (REF) | payer BC, SELFPAY ==
--- NOTE | ~2023-12-01 | US_ITS ---
EXAMINATION: US RETROPERITONEAL LIMITED (RENAL ONLY) CLINICAL INFORMATION: Calculus of kidney. COMPARISON: MRI kidneys 06/10/2023. CT abdomen and pelvis 04/12/2023. Renal ultrasound 10/29/2022 and 06/04/2022. X-ray KUB 04/29/2022. TECHNIQUE: Real-time imaging of the kidneys. FINDINGS: RIGHT KIDNEY: 11.0 x 5.0 x 6.0 cm (SAG x AP x TRV). The kidney is normal in size, contour, and echogenicity. Renal cortical thickness is normal. No renal calculi or hydronephrosis. A few relatively simple appearing cysts are noted within the right kidney, largest measuring 1.5 cm. No follow-up imaging is usually warranted for simple appearing renal cysts. LEFT KIDNEY: 11.2 x 7.2 x 5.5 cm (SAG x AP x TRV). The kidney is normal in size, contour, and echogenicity. Renal cortical thickness is normal. No calculi or focal parenchymal lesions. No hydronephrosis. US/US renal BI IMPRESSION: No renal calculi or hydronephrosis of either kidney.
== END 2023-12-01 15:52 | disposition home or self-care (01) ==
LOC: HO.US 15:51
PROVIDERS: PCP Family Medicine; Visit Provider Urology
DX: N20.0 Calculus of kidney (principal)
CPT/HCPCS: 76775

== ENCOUNTER 2023-12-11 07:18 | Outpatient (REF) | payer BC, SELFPAY ==
[2023-12-11 08:15] LABS: Appearance Urine Clear; Color Urine Yellow; Glucose Urine UA Negative (Negative); Leukocyte Esterase Urine Negative (Negative); Nitrite Urine Negative (Negative); Specific Gravity - Urine <= 1.005 (1.005-1.025); Urine Blood Negative (Negative); Urine Ketones Negative (Negative); Urine Protein Negative (Neg-Trace)
[2023-12-11 08:56] LABS: Alanine Aminotransferase 23 U/L (0-40); Albumin Level 4.1 g/dL (3.5-5.0); Alkaline Phosphatase 76 U/L (39-117); Anion Gap 11 (12-20); Aspartate Amino Transferase 23 U/L (5-37); Bilirubin Total 0.9 mg/dL (0.0-1.0); Blood Urea Nitrogen 12 mg/dL (9-16); Calcium 9.4 mg/dL (8.4-10.2); Carbon Dioxide 29 mmol/L (22-29); Chloride 105 mmol/L (96-108); Cholesterol 174 mg/dL (<200); Estimated Glomerular Filt Rate > 60; Glucose Fasting 106 mg/dL (60-99); HDL Cholesterol 51 mg/dL (>40); LDL Cholesterol Calculated 103 mg/dL (<100); Potassium 3.9 mmol/L (3.3-5.1); Sodium 141 mmol/L (135-145); Total Protein 6.8 g/dL (6.5-8.0); Triglycerides 100 mg/dL (<150)
[2023-12-11 09:01] LABS: TSH reflex Free T4 1.29 uIU/mL (0.32-4.0)
[2023-12-11 09:06] LABS: Creatinine Urine 13.99 mg/dL; Microalbumin Urine < 5.0 mg/L
[2023-12-11 09:06] LABS: Prostate Specific Antigen Scr 0.73 ng/mL (<0.05-4.0)
== END 2023-12-11 07:19 | disposition home or self-care (01) ==
LOC: HO.LAB 07:18
PROVIDERS: PCP Family Medicine; Visit Provider Family Medicine
DX: Z00.00 Encounter for general adult medical examination without abnormal findings (principal); Z12.5 Encounter for screening for malignant neoplasm of prostate; I10 Essential (primary) hypertension
CPT/HCPCS: 36415; 80053; 80061; 81003; 82043; 82570; 84153; 84443

== ENCOUNTER 2023-12-17 15:40 | Outpatient (AMB) | payer BC, SELFPAY ==
--- NOTE | 2023-12-17 15:46 | MHC.PC.OV ---
Vital Signs 12/17/23 15:48 Height 5 ft 11 in Weight 240 lb BMI 33.5 BP 141/66 H Blood Pressure Location Lt brachial Position Sitting Respiration 12 Pulse 90 Pulse Source Pulse Oximeter Temp 98.1 F Temp Source Temporal Artery Scan Pulse Oximetry (%) 96 Oxygen Delivery Method Room Air Intake Visit Reasons: CPE Intake Note: Patient is here for a physical and he has a concern for his blood pressure being elevated. Patient is accompanied by his spouse. Manager Costing Required: No Accompanied by: Spouse Allergies No Known Allergies Allergy (Mild, Verified 12/17/23 15:56) NKA Medication List - Last Reconciled 12/17/23 by Pradip Jackson MD allopurinol 100 mg PO DAILY 90 days atorvastatin 10 mg PO DAILY 90 days lisinopril-hydrochlorothiazide 10-12.5 mg 1 tab PO DAILY naproxen 500 mg PO BID PRN 30 days nicotine 1 patch transdermal Q24H 28 days Tobacco use date assessed: 12/17/23 Dental Screening Dental Screen Date: 12/17/23 Did you have a dental visit in the last 12 months?: No Did you have a dental problem in the last 6 months where you did not have access to dental care?: No Was dental information given to patient?: Patient has dentist HPI CPE HPI Details 62 y/o male presents for a CPE with f/u labs and health maintenance. Labs were drawn 12/11/23. Reviewed labs with pt. Triglycerides 100. TC 174. LDL 103. HDL 51. Blood pressure today 141/66. He is on lisinopril-HCTZ 10-12.5mg daily. A1c today 12/17/23 is 6.0%. Elevated fasting glucose of 106. Pt reports he continues to smoke and is requesting to be put back on a nicotine patch. [facility] Medical History Kidney stones Elevated cholesterol Actinic keratosis HTN (hypertension) Smoker History of anal fissures Surgical History Hx of colonoscopy History of ankle surgery History of surgery on arm Family History Other Mental health disorder Social History (Updated 12/17/23 @ 16:01 by ALEJANDRO Bruner Household Members: Spouse Housing: House 75 years or older and lives alone: No Alcohol intake: former Patient Tobacco Use Status: Current everyday Tobacco user Tobacco use type: Cigarette Cigarettes Per Day: 15 Years Smoked: 40 e-Cigarette/Vaping Use: Never Used Second Hand Smoke Exposure: No service: No Current occupational status: employed Current occupation: [employer] Current occupational exposures/hazards: No Cognitive needs: No Hearing needs: No Vision needs: No Questionnaire PHQ-9 Over the last 2 weeks, how often have you been bothered by any of the following problems? 1. Little interest or pleasure in doing things: not at all 2. Feeling down, depressed, or hopeless: not at all 3. Trouble falling or staying asleep, or sleeping too much: not at all 4. Feeling tired or having little energy: not at all 5. Poor appetite or overeating: not at all 6. Feeling bad about yourself - or that you are a failure or have let yourself or your family down: not at all 7. Trouble concentrating on things, such as reading the newspaper or watching television: not at all 8. Moving or speaking so slowly that other people could have noticed. Or the opposite - being so fidgety or restless that you have been moving around a lot more than usual: not at all 9. Thoughts that you would be better off or of hurting yourself in some way: not at all Total score: 0 Depression Screening Interpretation: Negative Depression Screening Done: Yes 41016 - PHQ-9 Billing: Yes Source: Developed by Drs. Moustapha Loza, Alanna Shepherd, Dick Back and colleagues, with an educational jesse from [employer]. Thrive Questionnaire Date Thrive assessed: 12/17/23 I am a: Patient What is your living situation today?: I have a steady place to live Within the past 12 months, did the food you bought not last and you didn't have the money to get more?: Never true Within the past 12 months, did you worry whether your food would run out before you got money to buy more?: Never true Do you have trouble paying for medicines?: No Do you have trouble getting transportation to medical appointments?: No Do you have trouble paying your heating and electricity bill?: No Do you have trouble taking care of your child, family member or friend?: No Do you have trouble with day-to-day activities such as bathing, preparing meals, shopping, managing finances, etc.?: No Are you currently unemployed and looking for a job?: No Are you interested in more education?: No Please select the resources that you would like help with: None Currently or been in a relationship where the following occur: no concerns reported THRIVE Score: 0 AUDIT C Alcohol Use Questionnaire (AUDIT-C) 1. How often do you have a drink containing alcohol?: Never 3. How often do you have six or more drinks on one occasion?: Never Total Score: 0 DEVAN-7 AMB Questionnaire DEVAN-7 Date DEVAN - 7 assessed: 12/17/23 Feeling nervous, anxious, or on edge: 0 = Not at all Not being able to stop or control worryin = Not at all Worrying too much about different things: 0 = Not at all Trouble relaxin = Not at all Being so restless that it is hard to sit still: 1 = Several days Becoming easily annoyed or irritable: 0 = Not at all Feeling afraid as if something awful might happen: 0 = Not at all Total DEVAN-7 score (0-4 normal; 5-9 mild; 10-14 moderate; 15-21 severe): 1 Source: Developed by Drs. Moustapha Loza, Alanna Shepherd, Dick Back and colleagues, with an educational jesse from [employer]. DEVAN-7 Assessment Billing DEVAN-7 Assessment Tool: DEVAN-7 Assessment [id number] Review of Systems Const Denies chills, Denies fatigue, Denies fever(s), Denies headache(s) and Denies weakness Eyes Denies change in vision ENT Denies dizziness, Denies headache(s), Denies hearing loss, Denies nasal congestion, Denies sinus pain, Denies sinus pressure and Denies sore throat Card Denies chest pain, Denies lightheadedness, Denies dyspnea and Denies other (palpitations) Resp Denies cough, Denies dyspnea and Denies wheezing GI Denies abdominal pain, Denies melena, Denies hematochezia, Denies change in bowel habits, Denies dyspepsia and Denies nausea Denies hematuria and Denies dysuria Musc Denies abnormal gait, Denies myalgias, Denies arthralgias, Denies numbness and Denies tingling Skin/Breast Denies rash, Denies unusual bruising and Denies wounds Neuro Denies abnormal gait, Denies dizziness, Denies headache(s), Denies memory loss, Denies numbness, Denies Sensory deficit (Neuro), Denies tingling and Denies weakness Psych Denies anxiety, Denies depression and Denies memory loss Endo Denies cold intolerance, Denies fatigue, Denies heat intolerance, Denies polydipsia and Denies polyuria Roby/Lymph Denies easy bleeding and Denies easy bruising Aller/Immun Denies wheezing Physical exam (Primary Care) Vital Signs: Last Vital Signs Temp 98.1 F 12/17/23 15:48 Pulse 90 12/17/23 15:48 Resp 12 12/17/23 15:48 BP 141/66 H 12/17/23 15:48 Pulse Ox 96 12/17/23 15:48 Oxygen Delivery Method Room Air 12/17/23 15:48 BMI result Body Mass Index 33.5 Tobacco/Smoking Status: Tobacco use Status Tobacco use date assessed 12/17/23 12/17/23 16:02 Patient Tobacco Use Status Current everyday Tobacco 12/17/23 16:01 Tobacco use type Cigarette 12/17/23 16:01 e-Cigarette/Vaping Use Never Used 12/17/23 16:01 PHQ-9: PHQ-9 Score PHQ-9: Total score 0 12/17/23 16:15 Depression Screening Interpretation: Negative Thrive Assessment: Date of Thrive Assessment Date Thrive assessed 12/17/23 12/17/23 16:02 Currently or been in a relationship where the following occur: no concerns reported Const General: no acute distress, well developed, alert and awake Nutritional Appearance: well nourished and obese Orientation/consciousness: patient oriented x3 HENMT Head: Yes normocephalic and Yes atraumatic Ears: hearing grossly normal bilaterally and TM's normal bilaterally General nose exam: Normal external nose present and Normal nares present Mouth: Normal oral and palatal mucosa present and moist mucous membranes Teeth and gingiva: dentition normal Throat: Yes posterior oropharynx normal Eyes General: appearance normal, both eyes and all related structures Pupils: Equal, round and reactive pupils present and Pupil accommodation reflex normal EOM: EOMs intact bilaterally Neck Neck: Yes normal visual inspection, Yes no lymphadenopathy and Yes trachea midline Thyroid: Thyroid normal Carotids: no bruits Lymphatic: no lymphadenopathy noted Chest Chest palpation & inspection: normal inspection of the chest Resp Effort & Inspection: normal respiratory effort Auscultation: clear to auscultation bilaterally Cardio Rate: regular rate Rhythm: regular rhythm Heart sounds: S1 normal heart sound present, S2 normal heart sound present, no gallops, no murmurs and no rubs Bruits: no abdominal aortic bruits and no carotid bruits GI Palpation (GI): No Abdominal aortic bruit present, Soft to palpation, nontender, No hepatosplenomegaly present and No Rebound tenderness present Auscultation: normal bowel sounds General: Yes no CVA tenderness Back/Spine/Pelvis Back: no CVA tenderness Cervical Spine: cervical ROM normal and No Cervical spine tenderness Thoracic/Lumbar Spine: thoraco-lumbar ROM normal, No pain with thoraco-lumbar ROM, No thoracic spinal tenderness and No lumbar spinal tenderness Skin Lesions: no lesions Rashes: no rashes Trauma: no lacerations or abrasions Wounds: no wounds Nails: normal Neuro General: patient oriented x3 Cranial nerves: Yes Equal, round and reactive pupils present Cognition (Neuro): normal cognition Gait exam (Neuro): Normal gait present Motor exam (neuro): 5/5 motor strength present throughout Sensory Exam: No Sensory deficit (Neuro) Deep tendon reflexes (DTR's): Right patellar reflex intensity grade: 2+ and Left patellar reflex intensity grade: 2+ Extrem General: Yes normal to inspection and No edema Psych Appearance: grossly normal Affect: normal affect Attitude: cooperative Thought process: Normal thought process present Results AMB Hemoglobin A1c AMB Hemoglobin A1c 6.0 % Last Edit by Sandra Parham CMA on 12/17/23 16:47 Assessment and Plan Assessment & Plan (1) Annual visit for general adult medical examination without abnormal findings: Code(s): Z00.00 - Encounter for general adult medical examination without abnormal findings Plan: 62-year-old?male?presents?for?complete?physical?exam Encouraged?healthy?diet?with?active?lifestyle?and?plenty?of?exercise (2) COPD (chronic obstructive pulmonary disease): Code(s): J44.9 - Chronic obstructive pulmonary disease, unspecified Plan: Lungs?are?clear?to?auscultation?and?he?is?breathing?normally. Encouraged?smoking?cessation-see?below (3) Nephrolithiasis: Code(s): N20.0 - Calculus of kidney Plan: Stable Follow-up?with?urology?as?recommended Hydrate?well (4) Smoker: Code(s): F17.200 - Nicotine dependence, unspecified, uncomplicated Plan: Patient?would?like?to?resume?nicotine?patches-refilled Encouraged?weaning?and?cessation (5) Hypertension: Code(s): I10 - Essential (primary) hypertension Plan: Blood?pressure?is?a?little?elevated?today. No?change?to?his?medications?but?he?will?monitor?it?at?home?and?let?me?know?if?his?blood?pressures?are?consistently?high?there. Would?adjust?his?medications If?high?at?next?visit?will?also?consider?adjusting?medication. (6) Pre-diabetes: Code(s): R73.03 - Prediabetes Plan: A1c?6.0?which?is?higher?than?last?check. Pre?diabetes?range Encouraged?diet?lower?in?sugars?and?starches?and?encouraged?exercise?and?weight?loss (7) Screening for prostate cancer: Code(s): Z12.5 - Encounter for screening for malignant neoplasm of prostate Plan: PSA?is?within?normal?limits?and?stable.??Will?continue?annual?screening (8) Screening for colon cancer: Code(s): Z12.11 - Encounter for screening for malignant neoplasm of colon Plan: Patient?had?a?colonoscopy?last?year?with??and?he?recommended?a?follow-up?in?7?years Up-to-date Orders: Orders AMB Hemoglobin A1c Today E11.9 - Type 2 diabetes mellitus without complications Medications: Refilled nicotine 1 patch transdermal Q24H 28 days 28 ea 2RF Coding Level of Care Code Est Pt Level 3 (23844) Est Pt Prev Care 40-64y(17551) Diagnoses Annual visit for general adult medical examination without abnormal findings Z00.00 COPD (chronic obstructive pulmonary disease) J44.9 Nephrolithiasis N20.0 Smoker F17.200 Hypertension I10 Pre-diabetes R73.03 Screening for prostate cancer Z12.5 Screening for colon cancer Z12.11 Additional Codes DEVAN-7 Assessment Billing - DEVAN-7 Assessment Tool: DEVAN-7 Assessment [id number] ([id number])
[2023-12-17 15:48] VITALS: BP 141/66; PULSE 90; RESP 12; TEMP 36.7; O2SAT 96; BMI 33.5
== END 2023-12-17 16:50 | disposition home or self-care (01) ==
PROVIDERS: PCP Family Medicine; Visit Provider Family Medicine
DX: Z00.00 Encounter for general adult medical examination without abnormal findings (principal); J44.9 Chronic obstructive pulmonary disease, unspecified; E11.9 Type 2 diabetes mellitus without complications; N20.0 Calculus of kidney; F17.210 Nicotine dependence, cigarettes, uncomplicated; I10 Essential (primary) hypertension; Z12.5 Encounter for screening for malignant neoplasm of prostate; Z12.11 Encounter for screening for malignant neoplasm of colon
CPT/HCPCS: 83036; 99396

== ENCOUNTER 2024-01-11 11:43 | Outpatient (AMB) | payer BC, SELFPAY ==
[2024-01-11 11:56] VITALS: BP 140/78; PULSE 102; O2SAT 95; BMI 33.7
--- NOTE | 2024-01-11 11:56 | A.OFFPC_ITS ---
Vital Signs 01/11/24 11:56 Height 5 ft 11 in Weight 242 lb BMI 33.7 BP 140/78 H Blood Pressure Location Lt brachial Position Sitting Pulse 102 H Pulse Source Pulse Oximeter Pulse Oximetry (%) 95 Oxygen Delivery Method Room Air Intake Visit Reasons: Rt Hip joint pain Intake Note: Patient is here with right hip joint pain. Allergies No Known Allergies Allergy (Mild, Verified 01/11/24 11:58) NKA Tobacco use date assessed: 01/11/24 Dental Screening Dental Screen Date: 01/11/24 Did you have a dental visit in the last 12 months?: Yes Did you have a dental problem in the last 6 months where you did not have access to dental care?: No Was dental information given to patient?: Patient declined HPI Rt Hip joint pain HPI Details 63 y/o male presents today with complain ts of R hip pain. R hip pain started March which he had went to the ED for and had also seen Nestor Pedro. Was prescribed naproxen and gabapentin. Pt reports ongoing pain and states he had an episode of pain a few days ago Wednesday. [facility] Medical History Kidney stones Elevated cholesterol Actinic keratosis HTN (hypertension) Smoker History of anal fissures Surgical History Hx of colonoscopy History of ankle surgery History of surgery on arm Family History Other Mental health disorder Social History (Updated 12/17/23 @ 16:01 by Sandra Parham CMA) Household Members: Spouse Housing: House 75 years or older and lives alone: No Alcohol intake: former Patient Tobacco Use Status: Current everyday Tobacco user Tobacco use type: Cigarette Cigarettes Per Day: 15 Years Smoked: 40 Packs per year/per ci.00 e-Cigarette/Vaping Use: Never Used Second Hand Smoke Exposure: No service: No Current occupational status: employed Current occupation: [employer] Current occupational exposures/hazards: No Cognitive needs: No Hearing needs: No Vision needs: No Questionnaire Thrive Questionnaire Date Thrive assessed: 12/17/23 DEVAN-7 AMB Questionnaire DEVAN-7 Date DEVAN - 7 assessed: 12/17/23 Source: Developed by Drs. Moustapha Loza, Alanna Shepherd, Dick Back and colleagues, with an educational jesse from [employer]. Review of Systems Const Denies chills, Denies fatigue, Denies fever(s), Denies headache(s) and Denies weakness ENT Denies dizziness and Denies headache(s) Card Denies dyspnea Resp Denies cough, Denies dyspnea, Denies wheezing and Denies other (shortness of breath) Musc Details: R hip pain Denies numbness and Denies tingling Neuro Denies dizziness, Denies headache(s), Denies numbness, Denies tingling and Denies weakness Psych Denies anxiety and Denies depression Endo Denies fatigue Aller/Immun Denies wheezing Physical exam (Primary Care) Vital Signs: Last Vital Signs Pulse 102 H 01/11/24 11:56 BP 140/78 H 01/11/24 11:56 Pulse Ox 95 01/11/24 11:56 Oxygen Delivery Method Room Air 01/11/24 11:56 BMI result Body Mass Index 33.7 Tobacco/Smoking Status: Tobacco use Status Tobacco use date assessed 01/11/24 01/11/24 12:00 Patient Tobacco Use Status Current everyday Tobacco 01/11/24 12:00 Tobacco use type Cigarette 01/11/24 12:00 e-Cigarette/Vaping Use Never Used 01/11/24 12:00 Thrive Assessment: Date of Thrive Assessment Date Thrive assessed 12/17/23 01/11/24 12:00 Const General: well developed; No acute distress Nutritional Appearance: well nourished Orientation/consciousness: patient oriented x3 [facility] Head: Yes normocephalic and Yes atraumatic Eyes General: appearance normal, both eyes and all related structures Pupils: Equal, round and reactive pupils present EOM: EOMs intact bilaterally Resp Effort & Inspection: normal respiratory effort Neuro General: patient oriented x3 and No gait normal Cranial nerves: Yes Equal, round and reactive pupils present Psych Affect: normal affect Assessment and Plan Assessment & Plan (1) Right hip pain: Code(s): M25.551 - Pain in right hip Plan: Ongoing?right?hip?pain?and?difficulty?walking.??He?is?using?a?crutch. 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 Has?been?out?since??and?we?will?keep?him?out?for?4?weeks?and?he?may?re turn?on?.??I?will?re-evaluate?him?just?prior?to?this; ?or?. Continue?ibuprofen,?cyclobenzaprine?and?he?will?start?physical?therapy. Had?x-rays?by?urgent?care?at?[facility].??I?am?requesting?these?results.??He?notes?that ?he?has?been?told?he? has?some?arthritis?but?given?symptoms?and?course,?I?suspect?this?is?more?acutely ?muscular?or?ligament. Will?re- evaluate?at?next?visit?and?if?still?having?issues,?may?need?a?referral?to?Ortho. Orders: Orders PT Evaluation and Treatment Today M25.551 - Pain in right hip Coding Level of Care Code Est Pt Level 3 (41461) Diagnoses Right hip pain M25.551
== END 2024-01-11 13:05 | disposition home or self-care (01) ==
PROVIDERS: PCP Family Medicine; Visit Provider Family Medicine
DX: M25.551 Pain in right hip (principal)
CPT/HCPCS: 99213

== ENCOUNTER 2024-02-03 10:26 | Outpatient (AMB) | payer BC, SELFPAY ==
--- NOTE | 2024-02-03 10:37 | MHC.PC.OV ---
Vital Signs 02/03/24 10:49 Height 5 ft 11 in Weight 238 lb 8 oz BMI 33.3 BP 128/84 Blood Pressure Location Lt brachial Position Sitting Pulse 88 Pulse Source Pulse Oximeter Temp 98.2 F Temp Source Oral Pulse Oximetry (%) 94 Oxygen Delivery Method Room Air Intake Visit Reasons: f/u R hip pain Intake Note: Follow up right hip pain. Never went to physical therapy. Has been out of work for 4 weeks and is requesting note to go back to work with no restrictions. Requesting refill on nicotine patches Private Duty Nurse Required: No Allergies No Known Allergies Allergy (Mild, Verified 02/03/24 10:40) NKA Tobacco use date assessed: 02/03/24 Dental Screening Dental Screen Date: 01/11/24 HPI f/u R hip pain HPI Details 63 y/o male presents to f/u R hip pain. Pt reports hip pain improved. X-ray from [facility] did show some mild R hip joint degenerative changes. Significant anxiety and stressors due to his mother who has Alzheimers at home. He also states he is having difficulty with sleep. [facility] Medical History Kidney stones Elevated cholesterol Actinic keratosis HTN (hypertension) Smoker History of anal fissures Surgical History Hx of colonoscopy History of ankle surgery History of surgery on arm Family History Other Mental health disorder Social History (Updated 12/17/23 @ 16:01 by Sandra Parham CMA) Household Members: Spouse Housing: House 75 years or older and lives alone: No Alcohol intake: former Patient Tobacco Use Status: Current everyday Tobacco user Tobacco use type: Cigarette Cigarettes Per Day: 15 Years Smoked: 40 e-Cigarette/Vaping Use: Never Used Second Hand Smoke Exposure: No service: No Current occupational status: employed Current occupation: equipment operator warehouse Current occupational exposures/hazards: No Cognitive needs: No Hearing needs: No Vision needs: No Questionnaire Thrive Questionnaire Date Thrive assessed: 12/17/23 DEVAN-7 AMB Questionnaire DEVAN-7 Date DEVAN - 7 assessed: 12/17/23 Source: Developed by Drs. Moustapha Loza, Alanna Shepherd, Dick Back and colleagues, with an educational jesse from [employer]. Review of Systems Const Denies chills, Denies fatigue, Denies fever(s), Denies headache(s) and Denies weakness ENT Denies dizziness and Denies headache(s) Card Denies dyspnea Resp Denies cough, Denies dyspnea, Denies wheezing and Denies other (shortness of breath) Musc Denies numbness and Denies tingling Neuro Denies dizziness, Denies headache(s), Denies numbness, Denies tingling and Denies weakness Psych Reports anxiety and Denies depression Endo Denies fatigue Aller/Immun Denies wheezing Physical exam (Primary Care) Vital Signs: Last Vital Signs Temp 98.2 F 02/03/24 10:49 Pulse 88 02/03/24 10:49 BP 128/84 02/03/24 10:49 Pulse Ox 94 02/03/24 10:49 Oxygen Delivery Method Room Air 02/03/24 10:49 BMI result Body Mass Index 33.3 Tobacco/Smoking Status: Tobacco use Status Tobacco use date assessed 02/03/24 02/03/24 10:52 Patient Tobacco Use Status Current everyday Tobacco 02/03/24 10:38 Tobacco use type Cigarette 02/03/24 10:38 e-Cigarette/Vaping Use Never Used 02/03/24 10:38 Thrive Assessment: Date of Thrive Assessment Date Thrive assessed 12/17/23 02/03/24 10:38 Const General: well developed; No acute distress Nutritional Appearance: well nourished Orientation/consciousness: patient oriented x3 [facility] Head: Yes normocephalic and Yes atraumatic Eyes General: appearance normal, both eyes and all related structures Pupils: Equal, round and reactive pupils present EOM: EOMs intact bilaterally Resp Effort & Inspection: normal respiratory effort Neuro General: patient oriented x3 and gait normal Cranial nerves: Yes Equal, round and reactive pupils present Psych Affect: normal affect Assessment and Plan Assessment & Plan (1) Right hip pain: Code(s): M25.551 - Pain in right hip Plan: Resolved?with?home?exercises Encouraged?ongoing?exercise?and?stretch X-ray?showed?only?mild?degenerative?changes. (2) Anxiety: Code(s): F41.9 - Anxiety disorder, unspecified Plan: Significant?anxiety?and?stressors?due?to?having?his?mother?who?has?Alzheimer's?at?home?and?he?is?her?primary?care?taker Having?difficulty?with?sleep Trial?trazodone Medications: New trazodone 50mg (1 tab) to 100mg (2 tabs) orally bedtime PRN; 30 days 60 tabs 0RF sleep Refilled nicotine 1 patch transdermal Q24H 28 days 28 ea 2RF Coding Level of Care Code Est Pt Level 3 (83616) Diagnoses Right hip pain M25.551 Anxiety F41.9
[2024-02-03 10:49] VITALS: BP 128/84; PULSE 88; TEMP 36.8; O2SAT 94; BMI 33.3
== END 2024-02-03 11:36 | disposition home or self-care (01) ==
PROVIDERS: PCP Family Medicine; Visit Provider Family Medicine
DX: M25.551 Pain in right hip (principal); F41.9 Anxiety disorder, unspecified
CPT/HCPCS: 99213

== ENCOUNTER → 2024-03-17 16:15 | Outpatient (AMB) | payer BC, SELFPAY ==
--- NOTE | 2024-03-17 16:28 | A.OFFPC_ITS ---
Vital Signs 03/17/24 16:29 Height 5 ft 11 in Weight 248 lb BMI 34.6 BP 132/64 Blood Pressure Location Lt brachial Position Sitting Pulse 85 Pulse Source Pulse Oximeter Pulse Oximetry (%) 95 Oxygen Delivery Method Room Air Intake Visit Reasons: f/u prediabetes, hypertension Allergies No Known Allergies Allergy (Mild, Verified 03/17/24 16:34) NKA Medication List - Last Reconciled 03/17/24 by Pradip Jackson MD allopurinol 100 mg PO DAILY 90 days atorvastatin 10 mg PO DAILY 90 days ibuprofen 600 mg PO TID lisinopril-hydrochlorothiazide 10-12.5 mg 1 tab PO DAILY nicotine 1 patch transdermal Q24H 28 days Tobacco use date assessed: 02/03/24 Dental Screening Dental Screen Date: 01/11/24 HPI f/u prediabetes, hypertension HPI Details 63 y/o male presents to f/u prediabetes, hypertension. A1c today 03/17/24 6.0%, which has unchanged from prior in November. Blood pressure today 132/64. He is on lisinopril-HCTZ 10-12.5mg daily. Pt reports he continues to smoke. [facility] Medical History Kidney stones Elevated cholesterol Actinic keratosis HTN (hypertension) Smoker History of anal fissures Surgical History Hx of colonoscopy History of ankle surgery History of surgery on arm Family History Other Mental health disorder Social History (Updated 12/17/23 @ 16:01 by Sandra Parham CMA) Household Members: Spouse Housing: House 75 years or older and lives alone: No Alcohol intake: former Patient Tobacco Use Status: Current everyday Tobacco user Tobacco use type: Cigarette Cigarettes Per Day: 15 Years Smoked: 40 e-Cigarette/Vaping Use: Never Used Second Hand Smoke Exposure: No service: No Current occupational status: employed Current occupation: retail warehouse supervisor Current occupational exposures/hazards: No Cognitive needs: No Hearing needs: No Vision needs: No Questionnaire Thrive Questionnaire Date Thrive assessed: 12/17/23 DEVAN-7 AMB Questionnaire DEVAN-7 Date DEVAN - 7 assessed: 12/17/23 Source: Developed by Drs. Moustapha Loza, Alanna Shepherd, Dick Back and colleagues, with an educational jesse from [employer]. Review of Systems Const Denies chills, Denies fatigue, Denies fever(s), Denies headache(s) and Denies weakness ENT Denies dizziness and Denies headache(s) Card Denies dyspnea Resp Denies cough, Denies dyspnea, Denies wheezing and Denies other (shortness of breath) Musc Denies numbness and Denies tingling Neuro Denies dizziness, Denies headache(s), Denies numbness, Denies tingling and Denies weakness Psych Denies anxiety and Denies depression Endo Denies fatigue Aller/Immun Denies wheezing Physical exam (Primary Care) Vital Signs: Last Vital Signs Pulse 85 03/17/24 16:29 BP 132/64 03/17/24 16:29 Pulse Ox 95 03/17/24 16:29 Oxygen Delivery Method Room Air 03/17/24 16:29 BMI result Body Mass Index 34.6 Tobacco/Smoking Status: Tobacco use Status Tobacco use date assessed 02/03/24 03/17/24 16:30 Patient Tobacco Use Status Current everyday Tobacco 03/17/24 16:30 Tobacco use type Cigarette 03/17/24 16:30 e-Cigarette/Vaping Use Never Used 03/17/24 16:30 Thrive Assessment: Date of Thrive Assessment Date Thrive assessed 12/17/23 03/17/24 16:30 Const General: well developed; No acute distress Nutritional Appearance: well nourished Orientation/consciousness: [facility] Head: Yes normocephalic and Yes atraumatic Eyes General: appearance normal, both eyes and all related structures Pupils: Equal, round and reactive pupils present EOM: EOMs intact bilaterally Resp Effort & Inspection: normal respiratory effort Neuro General: patient oriented x3 and gait normal Cranial nerves: Yes Equal, round and reactive pupils present Psych Affect: normal affect Results AMB Hemoglobin A1c AMB Hemoglobin A1c 6.0 % Last Edit by Mica Gannon CMA on 03/17/24 16:50 Results Reviewed Results Reviewed: Laboratory Last Values Hgb A1c (Clinic) 6.0 % (4.0-6.0) 03/17/24 16:43 Assessment and Plan Assessment & Plan (1) Pre-diabetes: Code(s): R73.03 - Prediabetes Plan: A1c?remains?at?6.0%.??Stable?pre?diabetes?range Encouraged?diet?lower?in?sugars?and?starches Encouraged?exercise?and?weight?loss (2) HTN (hypertension): Code(s): I10 - Essential (primary) hypertension Plan: Blood?pressure?is?controlled.??Goal?is?less?than?140/90 Continue?current?medication?regimen?however?I?encouraged?a?diet?low?in?salt/sodi um?and?weight?loss. (3) Smoker: Code(s): F17.200 - Nicotine dependence, unspecified, uncomplicated Plan: Patient?has?been?smoking?20?pack?years?at?1?pack?per?day Encouraged?smoking?cessation. Recent?stressor?as?his?mom?has?passed?away He?is?contemplating?quitting?and?plans?to?make?a?quit?date?in?late?March. His??is?supportive?and?encouraging?him?to?do?so?as?well Will?follow-up?at?next?visit?to?continue?supporting?this. (4) Difficulty sleeping: Code(s): G47.9 - Sleep disorder, unspecified Plan: Patient?had?tried?trazodone?and?this?had?helped?but?he?is?no?longer?needing?it Sleeping?well Removed?trazodone?from?med?list (5) COPD (chronic obstructive pulmonary disease): Code(s): J44.9 - Chronic obstructive pulmonary disease, unspecified Plan: 20?year?pack?year?of?smoking,?distant?breath?sounds Mild?COPD Encouraged?smoking?cessation?as?above Will?follow Orders: Orders AMB Hemoglobin A1c Today Z13.9 - Encounter for screening, unspecified Medications: Discontinued trazodone Discontinued Reason: Doctor's Order 50mg (1 tab) to 100mg (2 tabs) orally bedtime PRN; 30 days 60 tabs 0RF sleep Coding Level of Care Code Est Pt Level 4 (41027) Diagnoses Pre-diabetes R73.03 HTN (hypertension) I10 Smoker F17.200 Difficulty sleeping G47.9 COPD (chronic obstructive pulmonary disease) J44.9
[2024-03-17 16:29] VITALS: BP 132/64; PULSE 85; O2SAT 95; BMI 34.6
== END ==
PROVIDERS: PCP Family Medicine; Visit Provider Family Medicine
DX: R73.03 Prediabetes (principal); J44.9 Chronic obstructive pulmonary disease, unspecified; I10 Essential (primary) hypertension; F17.210 Nicotine dependence, cigarettes, uncomplicated; G47.9 Sleep disorder, unspecified
CPT/HCPCS: 83036; 99214

== ENCOUNTER 2024-12-09 07:07 | Outpatient (REF) | payer BC, SELFPAY ==
[2024-12-09 07:21] LABS: MANUAL DIFF FLAG NO
[2024-12-09 08:07] LABS: Basophils Absolute Auto 0.1 X10*3/uL (0.0-0.2); Basophils Percent Auto 0.7 % (0-2); Eosinophils Absolute Auto 0.2 X10*3/uL (0.0-0.4); Eosinophils Percent Auto 2.5 % (0-4); Hematocrit 50.4 % (42.0-52.0); Hemoglobin 16.7 g/dl (14.0-18.0); Imm Gran Abs Auto 0.01 X10*3/uL (0.00-0.03); Imm Gran Pct Auto 0.1 % (0.0-0.4); Lymphocytes Percent Auto 27.5 % (20-40); Mean Corpuscular HGB Conc 33.1 g/dl (31.0-36.0); Mean Corpuscular Hemoglobin 29.4 pg (27.0-33.0); Mean Corpuscular Volume 88.7 fL (80.0-98.0); Mean Platelet Volume 12.2 fL (9.4-12.4); Monocytes Absolute Auto 0.7 X10*3/uL (0.1-1.2); Monocytes Percent Auto 9.6 % (2-11); Neutrophils Absolute Auto 4.3 x10*3/uL (2.0-8.3); Neutrophils Percent Auto 59.6 % (45-73); Platelet Count 192 X10*3/uL (160-400); Red Blood Count 5.68 X10*6/uL (4.60-5.80); Red Cell Distribution Width 13.2 % (11.0-16.0); White Blood Count 7.2 X10*3/uL (4.8-10.8)
[2024-12-09 08:24] LABS: Appearance Urine Clear; Color Urine Yellow; Glucose Urine UA Negative (Negative); Leukocyte Esterase Urine Negative (Negative); Nitrite Urine Negative (Negative); PH 5.5 (5.0-9.0); Urine Blood Negative (Negative); Urine Ketones Negative (Negative); Urine Protein Negative (Neg-Trace)
[2024-12-09 08:50] LABS: Prostate Specific Antigen Scr 0.61 ng/mL (<0.05-4.0)
[2024-12-09 09:00] LABS: Alanine Aminotransferase 25 U/L (0-40); Albumin Level 4.2 g/dL (3.5-5.0); Alkaline Phosphatase 86 U/L (39-117); Anion Gap 14 (12-20); Aspartate Amino Transferase 26 U/L (5-37); Bilirubin Total 0.5 mg/dL (0.0-1.0); Blood Urea Nitrogen 14 mg/dL (9-16); Calcium 9.7 mg/dL (8.4-10.2); Carbon Dioxide 28 mmol/L (22-29); Chloride 108 mmol/L (96-108); Cholesterol 167 mg/dL (<200); Estimated Glomerular Filt Rate > 60; Glucose Fasting 114 mg/dL (60-99); HDL Cholesterol 52 mg/dL (>40); LDL Cholesterol Calculated 94 mg/dL (<100); Potassium 4.4 mmol/L (3.3-5.1); Sodium 146 mmol/L (135-145); TSH reflex Free T4 1.71 uIU/mL (0.32-4.0); Triglycerides 108 mg/dL (<150); Uric Acid 6.5 mg/dL (3.4-7.0)
[2024-12-09 09:17] LABS: Creatinine Urine 77.36 mg/dL; Microalbumin Urine < 5.0 mg/L
== END 2024-12-09 07:08 | disposition home or self-care (01) ==
LOC: HO.LAB 07:07
PROVIDERS: PCP Family Medicine; Visit Provider Family Medicine
DX: Z00.00 Encounter for general adult medical examination without abnormal findings (principal); Z12.5 Encounter for screening for malignant neoplasm of prostate; I10 Essential (primary) hypertension; M10.9 Gout, unspecified
CPT/HCPCS: 36415; 80053; 80061; 81003; 82043; 82570; 84153; 84443; 84550; 85025

== ENCOUNTER 2024-12-15 15:31 | Outpatient (AMB) | payer BC, SELFPAY ==
--- NOTE | 2024-12-15 15:58 | A.OFFPC_ITS ---
Vital Signs 12/15/24 16:12 Height 5 ft 11 in Weight 246 lb 4 oz BMI 34.3 BP 128/74 Blood Pressure Location Lt brachial Position Sitting Respiration 14 Pulse 76 Pulse Source Pulse Oximeter Temp 97.7 F Temp Source Oral Pulse Oximetry (%) 95 Oxygen Delivery Method Room Air Intake Visit Reasons: annual Court Registry Officer Required: No Allergies No Known Allergies Allergy (Mild, Verified 12/15/24 15:59) NKA Medication List - Last Reconciled 12/15/24 by Pradip Jackson MD atorvastatin 10 mg PO DAILY 90 days lisinopril-hydrochlorothiazide 10-12.5 mg 1 tab PO DAILY naproxen 500 mg PO BID varenicline tartrate PO PER PKG DIR Tobacco use date assessed: 12/15/24 Dental Screening Dental Screen Date: 12/15/24 Did you have a dental visit in the last 12 months?: No Did you have a dental problem in the last 6 months where you did not have access to dental care?: No Was dental information given to patient?: No HPI annual HPI Details 63 y/o male presents for a CPE with f/u labs and health maintenance. Hx of pre-diabetes. A1c today 5.8%, improved from 6.0%. BP today 128/74, 76p. He is on lisinopril-HCTZ 10-12.5mg daily. Last colonoscopy with Dr. Melton 2020. [facility] Medical History Kidney stones Elevated cholesterol Actinic keratosis HTN (hypertension) Smoker History of anal fissures Surgical History Hx of colonoscopy History of ankle surgery History of surgery on arm Family History Other Mental health disorder Social History Household Members: Spouse Housing: House 75 years or older and lives alone: No Alcohol intake: former Patient Tobacco Use Status: Current everyday Tobacco user Tobacco use type: Cigarette Cigarettes Per Day: 15 Years Smoked: 40 e-Cigarette/Vaping Use: Never Used Second Hand Smoke Exposure: No service: No Current occupational status: employed Current occupation: equipment operator warehouse Current occupational exposures/hazards: No Cognitive needs: No Hearing needs: No Vision needs: No Questionnaire PHQ-9 Over the last 2 weeks, how often have you been bothered by any of the following problems? 1. Little interest or pleasure in doing things: not at all 2. Feeling down, depressed, or hopeless: not at all 3. Trouble falling or staying asleep, or sleeping too much: several days 4. Feeling tired or having little energy: several days 5. Poor appetite or overeating: not at all 6. Feeling bad about yourself - or that you are a failure or have let yourself or your family down: not at all 7. Trouble concentrating on things, such as reading the newspaper or watching television: not at all 8. Moving or speaking so slowly that other people could have noticed. Or the opposite - being so fidgety or restless that you have been moving around a lot more than usual: not at all 9. Thoughts that you would be better off or of hurting yourself in some way: not at all Total score: 2 Depression Screening Interpretation: Negative Depression Screening Done: Yes 63627 - PHQ-9 Billing: Yes Source: Developed by Drs. Moustapha Loza, Alanna Shepherd, Dick Back and colleagues, with an educational jesse from [employer]. Thrive Questionnaire Date Thrive assessed: 12/15/24 I am a: Patient What is your living situation today?: I have a steady place to live Within the past 12 months, did the food you bought not last and you didn't have the money to get more?: Never true Within the past 12 months, did you worry whether your food would run out before you got money to buy more?: Never true Do you have trouble paying for medicines?: No Do you have trouble getting transportation to medical appointments?: No Do you have trouble paying your heating and electricity bill?: No Do you have trouble taking care of your child, family member or friend?: No Do you have trouble with day-to-day activities such as bathing, preparing meals, shopping, managing finances, etc.?: No Are you currently unemployed and looking for a job?: No Are you interested in more education?: No Please select the resources that you would like help with: None Currently or been in a relationship where the following occur: I choose not to answer THRIVE Score: 0 AUDIT C Alcohol Use Questionnaire (AUDIT-C) 1. How often do you have a drink containing alcohol?: Never 3. How often do you have six or more drinks on one occasion?: Never Total Score: 0 Score Reviewed/Action Taken: Yes DEVAN-7 AMB Questionnaire DEVAN-7 Date DEVAN - 7 assessed: 12/15/24 Feeling nervous, anxious, or on edge: 0 = Not at all Not being able to stop or control worryin = Not at all Worrying too much about different things: 0 = Not at all Trouble relaxin = Not at all Being so restless that it is hard to sit still: 0 = Not at all Becoming easily annoyed or irritable: 0 = Not at all Feeling afraid as if something awful might happen: 0 = Not at all Total DEVAN-7 score (0-4 normal; 5-9 mild; 10-14 moderate; 15-21 severe): 0 Source: Developed by Drs. Moustapha Loza, Alanna Shepherd, Dick Back and colleagues, with an educational jesse from [employer]. DEVAN-7 Assessment Billing DEVAN-7 Assessment Tool: DEVAN-7 Assessment 39293 Review of Systems Const Denies chills, Denies fatigue, Denies fever(s), Denies headache(s) and Denies weakness Eyes Denies change in vision ENT Denies dizziness and Denies headache(s) Card Denies dyspnea Resp Denies cough, Denies dyspnea, Denies wheezing and Denies other (shortness of breath) GI Denies abdominal pain, Denies melena, Denies hematochezia, Denies change in bowel habits, Denies dyspepsia and Denies nausea Denies hematuria and Denies dysuria Musc Denies numbness and Denies tingling Skin/Breast Denies rash, Denies unusual bruising and Denies wounds Neuro Denies dizziness, Denies headache(s), Denies numbness, Denies Sensory deficit (Neuro), Denies tingling and Denies weakness Psych Denies anxiety and Denies depression Endo Denies fatigue Roby/Lymph Denies easy bleeding and Denies easy bruising Aller/Immun Denies wheezing Physical exam (Primary Care) Vital Signs: Last Vital Signs Temp 97.7 F 12/15/24 16:12 Pulse 76 12/15/24 16:12 Resp 14 12/15/24 16:12 BP 128/74 12/15/24 16:12 Pulse Ox 95 12/15/24 16:12 Oxygen Delivery Method Room Air 12/15/24 16:12 BMI result Body Mass Index 34.3 Tobacco/Smoking Status: Tobacco use Status Tobacco use date assessed 12/15/24 12/15/24 16:15 Patient Tobacco Use Status Current everyday Tobacco 12/15/24 15:59 Tobacco use type Cigarette 12/15/24 15:59 e-Cigarette/Vaping Use Never Used 12/15/24 15:59 PHQ-9: PHQ-9 Score PHQ-9: Total score 2 12/15/24 16:15 Depression Screening Interpretation: Negative Thrive Assessment: Date of Thrive Assessment Date Thrive assessed 12/15/24 12/15/24 15:59 Currently or been in a relationship where the following occur: I choose not to answer Const General: well developed; No acute distress Nutritional Appearance: well nourished Orientation/consciousness: patient oriented x3 HENMT Head: Yes normocephalic and Yes atraumatic Ears: hearing grossly normal bilaterally and TM's normal bilaterally General nose exam: Normal external nose present and Normal nares present Mouth: Normal oral and palatal mucosa present and moist mucous membranes Teeth and gingiva: dentition normal Throat: Yes posterior oropharynx normal Eyes General: appearance normal, both eyes and all related structures Pupils: Equal, round and reactive pupils present EOM: EOMs intact bilaterally Neck Neck: Yes normal visual inspection, Yes no lymphadenopathy and Yes trachea midline Thyroid: Thyroid normal Carotids: no bruits Lymphatic: no lymphadenopathy noted Chest Chest palpation & inspection: normal inspection of the chest Resp Effort & Inspection: normal respiratory effort Auscultation: clear to auscultation bilaterally Cardio Rate: regular rate Rhythm: regular rhythm Heart sounds: S1 normal heart sound present, S2 normal heart sound present, no gallops, no murmurs and no rubs Bruits: no abdominal aortic bruits and no carotid bruits GI Palpation (GI): No Abdominal aortic bruit present, Soft to palpation, nontender, No hepatosplenomegaly present and No Rebound tenderness present Auscultation: normal bowel sounds General: Yes no CVA tenderness Back/Spine/Pelvis Back: no CVA tenderness Cervical Spine: cervical ROM normal and No Cervical spine tenderness Thoracic/Lumbar Spine: thoraco-lumbar ROM normal, No pain with thoraco-lumbar ROM, No thoracic spinal tenderness and No lumbar spinal tenderness Skin Lesions: no lesions Rashes: no rashes Trauma: no lacerations or abrasions Wounds: no wounds Nails: normal Neuro General: patient oriented x3 and gait normal Cranial nerves: Yes Equal, round and reactive pupils present Cognition (Neuro): normal cognition Gait exam (Neuro): Normal gait present Motor exam (neuro): 5/5 motor strength present throughout Sensory Exam: No Sensory deficit (Neuro) Deep tendon reflexes (DTR's): Right patellar reflex intensity grade: 2+ and Left patellar reflex intensity grade: 2+ Extrem General: Yes normal to inspection and No edema Psych Appearance: grossly normal Affect: normal affect Attitude: cooperative Thought process: Normal thought process present Results AMB Hemoglobin A1c AMB Hemoglobin A1c 5.8 % Last Edit by Yolanda Cain CMA on 12/15/24 16:19 Results Reviewed Results Reviewed: Laboratory Last Values Hgb A1c (Clinic) 5.8 % (4.0-6.0) 12/15/24 16:18 Coding Level of Care Code Est Pt Level 3 (09471) Est Pt Prev Care 40-64y(33613) Diagnoses Annual visit for general adult medical examination without abnormal findings Z00.00 HTN (hypertension) I10 Pre-diabetes R73.03 Screening for colon cancer Z12.11 Screening for prostate cancer Z12.5 Abdominal bloating R14.0 Additional Codes DEVAN-7 Assessment Billing - DEVAN-7 Assessment Tool: DEVAN-7 Assessment 48609 ([id number]) PHQ-9 - 66800 - PHQ-9 Billing: Yes ([id number]) Assessment & Plan Assessment & Plan (1) Annual visit for general adult medical examination without abnormal findings: Code(s): Z00.00 - Encounter for general adult medical examination without abnormal findings Category: Medical Plan: 63-year-old?male?presents?for?complete?physical?exam Encouraged?healthy?diet?with?active?lifestyle?and?plenty?of?exercise (2) HTN (hypertension): Code(s): I10 - Essential (primary) hypertension Category: Medical Plan: Blood?pressure?is?controlled.??Goal?is?less?than?140/90 Continue?current?medications (3) Pre-diabetes: Code(s): R73.03 - Prediabetes Category: Medical Plan: A1c?now?5.8%.??Still?in?pre?diabetes?range?but?improving Encouraged?diet?low?in?sugars?and?starches Encouraged?weight?loss (4) Screening for colon cancer: Code(s): Z12.11 - Encounter for screening for malignant neoplasm of colon Category: Medical Plan: Colonoscopy?in?2020.??Recommended?follow-up?in?2025 Up-to-date (5) Screening for prostate cancer: Code(s): Z12.5 - Encounter for screening for malignant neoplasm of prostate Category: Medical Plan: PSA?is?within?normal?range Will?continue?annual?screening (6) Abdominal bloating: Code(s): R14.0 - Abdominal distension (gaseous) Category: Medical Plan: Avoid?trigger?foods Hydrate?well Can?use?occasional?MiraLax Orders: Orders AMB Hemoglobin A1c Today R73.03 - Prediabetes Microalbumin, Random (w Creat) Today I10 - Essential (primary) hypertension Comprehensive [place]. Panel Fast Today I10 - Essential (primary) hypertension, Z00.00 - Encounter for general adult medical examination without abnormal findings Referrals Podiatry Referral L60.2 - Onychogryphosis Medications: New varenicline tartrate PO PER PKG DIR 53 ea 0RF
[2024-12-15 16:12] VITALS: BP 128/74; PULSE 76; RESP 14; TEMP 36.5; O2SAT 95; BMI 34.3
== END 2024-12-15 16:43 | disposition home or self-care (01) ==
PROVIDERS: PCP Family Medicine; Visit Provider Family Medicine
DX: Z00.00 Encounter for general adult medical examination without abnormal findings (principal); R73.03 Prediabetes; I10 Essential (primary) hypertension; Z12.11 Encounter for screening for malignant neoplasm of colon; Z12.5 Encounter for screening for malignant neoplasm of prostate; R14.0 Abdominal distension (gaseous)

== ENCOUNTER → 2024-12-15 15:31 | Outpatient (BNVA) | payer BC, SELFPAY | PROVIDERS: PCP Family Medicine; Visit Provider Family Medicine | DX: Z00.00 Encounter for general adult medical examination without abnormal findings (principal); R73.03 Prediabetes; I10 Essential (primary) hypertension; R14.0 Abdominal distension (gaseous); L60.2 Onychogryphosis | CPT/HCPCS: 83036; 96127 ==

== ENCOUNTER 2025-02-08 06:58 | Outpatient (REF) | payer OTHER, SELFPAY ==
[2025-02-08 09:08] LABS: Alanine Aminotransferase 20 U/L (0-40); Albumin Level 4.2 g/dL (3.5-5.0); Alkaline Phosphatase 92 U/L (39-117); Anion Gap 12 (12-20); Aspartate Amino Transferase 25 U/L (5-37); Bilirubin Total 0.7 mg/dL (0.0-1.0); Blood Urea Nitrogen 12 mg/dL (9-16); Calcium 9.4 mg/dL (8.4-10.2); Carbon Dioxide 28 mmol/L (22-29); Chloride 106 mmol/L (96-108); Estimated Glomerular Filt Rate > 60; Glucose Fasting 114 mg/dL (60-99); Potassium 4.4 mmol/L (3.3-5.1); Sodium 142 mmol/L (135-145); Total Protein 6.8 g/dL (6.5-8.0)
[2025-02-08 09:29] LABS: Microalbumin Urine < 5.0 mg/L
== END 2025-02-08 06:59 | disposition home or self-care (01) ==
LOC: HO.LAB 06:58
PROVIDERS: PCP Family Medicine; Visit Provider Family Medicine
DX: Z00.00 Encounter for general adult medical examination without abnormal findings (principal); I10 Essential (primary) hypertension
CPT/HCPCS: 36415; 80053; 82043; 82570

== ENCOUNTER 2025-02-12 15:25 | Outpatient (AMB) | payer OTHER, SELFPAY ==
--- NOTE | 2025-02-12 15:43 | A.OFFPC_ITS ---
Vital Signs 02/12/25 15:50 Height 5 ft 11 in Weight 244 lb 4 oz BMI 34.1 BP 130/70 Blood Pressure Location Rt brachial Position Sitting Respiration 14 Pulse 79 Pulse Source Pulse Oximeter Temp 97.8 F Temp Source Oral Pulse Oximetry (%) 95 Oxygen Delivery Method Room Air Intake Visit Reasons: f/u htn,abd bloating, labs Intake Note: follow up for htn and labs Gymnastics Coach Or Instructor Required: No Allergies No Known Allergies Allergy (Mild, Verified 02/12/25 15:46) NKA Tobacco use date assessed: 12/15/24 Dental Screening Dental Screen Date: 12/15/24 HPI f/u htn,abd bloating, labs HPI Details 64 y/o male presents to f/u HTN, abd. bl oating, labs. Labs drawn 02/08/25. Reviewed labs with pt. Elevated fasting glucose of 114. Last A1c 12/15/24 5.8%. BP today 130/70, 79p. He is on lisinopril-HCTZ 10-12.5mg daily. Has complaints of dizziness. He denies sensation of room spinning. He denies any chest pain. He describes dizziness as being lightheaded. [facility] Medical History Kidney stones Elevated cholesterol Actinic keratosis HTN (hypertension) Smoker History of anal fissures Surgical History Hx of colonoscopy History of ankle surgery History of surgery on arm Family History Other Mental health disorder Social History Household Members: Spouse Housing: House 75 years or older and lives alone: No Alcohol intake: former Patient Tobacco Use Status: Current everyday Tobacco user Tobacco use type: Cigarette Cigarettes Per Day: 15 Years Smoked: 40 e-Cigarette/Vaping Use: Never Used Second Hand Smoke Exposure: No service: No Current occupational status: employed Current occupation: warehouse order puller Current occupational exposures/hazards: No Cognitive needs: No Hearing needs: No Vision needs: No Questionnaire PHQ-9 Over the last 2 weeks, how often have you been bothered by any of the following problems? 1. Little interest or pleasure in doing things: not at all 2. Feeling down, depressed, or hopeless: not at all 3. Trouble falling or staying asleep, or sleeping too much: not at all 4. Feeling tired or having little energy: not at all 5. Poor appetite or overeating: not at all 6. Feeling bad about yourself - or that you are a failure or have let yourself or your family down: not at all 7. Trouble concentrating on things, such as reading the newspaper or watching television: not at all 8. Moving or speaking so slowly that other people could have noticed. Or the opposite - being so fidgety or restless that you have been moving around a lot more than usual: not at all 9. Thoughts that you would be better off or of hurting yourself in some way: not at all Total score: 0 Source: Developed by Drs. Moustapha Loza, Dick Glover and colleagues, with an educational jesse from [employer]. Thrive Questionnaire Date Thrive assessed: 12/08/24 I am a: Patient What is your living situation today?: I have a steady place to live Within the past 12 months, did the food you bought not last and you didn't have the money to get more?: Never true Within the past 12 months, did you worry whether your food would run out before you got money to buy more?: Never true Do you have trouble paying for medicines?: No Do you have trouble getting transportation to medical appointments?: No Do you have trouble paying your heating and electricity bill?: No Do you have trouble taking care of your child, family member or friend?: No Do you have trouble with day-to-day activities such as bathing, preparing meals, shopping, managing finances, etc.?: No Are you currently unemployed and looking for a job?: No Are you interested in more education?: No Please select the resources that you would like help with: None Currently or been in a relationship where the following occur: I choose not to answer THRIVE Score: 0 DEVAN-7 AMB Questionnaire DEVAN-7 Date DEVAN - 7 assessed: 12/15/24 Source: Developed by Drs. Moustapha Loza, Alanna Shepherd, Dick Back and colleagues, with an educational jesse from [employer]. Review of Systems Const Denies chills, Denies fatigue, Denies fever(s), Denies headache(s) and Denies weakness ENT Denies dizziness and Denies headache(s) Card Denies dyspnea Resp Denies cough, Denies dyspnea, Denies wheezing and Denies other (shortness of breath) Musc Denies numbness and Denies tingling Neuro Denies dizziness, Denies headache(s), Denies numbness, Denies tingling and Denies weakness Psych Denies anxiety and Denies depression Endo Denies fatigue Aller/Immun Denies wheezing Physical exam (Primary Care) Vital Signs: Last Vital Signs Temp 97.8 F 02/12/25 15:50 Pulse 79 02/12/25 15:50 Resp 14 02/12/25 15:50 BP 130/70 02/12/25 15:50 Pulse Ox 95 02/12/25 15:50 Oxygen Delivery Method Room Air 02/12/25 15:50 BMI result Body Mass Index 34.1 Tobacco/Smoking Status: Tobacco use Status Tobacco use date assessed 12/15/24 02/12/25 15:44 Patient Tobacco Use Status Current everyday Tobacco 02/12/25 15:44 Tobacco use type Cigarette 02/12/25 15:44 e-Cigarette/Vaping Use Never Used 02/12/25 15:44 PHQ-9: PHQ-9 Score PHQ-9: Total score 0 02/12/25 15:44 Thrive Assessment: Date of Thrive Assessment Date Thrive assessed 12/08/24 02/12/25 15:44 Currently or been in a relationship where the following occur: I choose not to answer Const General: well developed; No acute distress Nutritional Appearance: well nourished Orientation/consciousness: patient oriented x3 HENMT Head: Yes normocephalic and Yes atraumatic Eyes General: appearance normal, both eyes and all related structures Pupils: Equal, round and reactive pupils present EOM: EOMs intact bilaterally Resp Effort & Inspection: normal respiratory effort Neuro General: patient oriented x3 and gait normal Cranial nerves: Yes Equal, round and reactive pupils present Psych Affect: normal affect Coding Level of Care Code Est Pt Level 4 (30211) Diagnoses HTN (hypertension) I10 Abdominal bloating R14.0 Pre-diabetes R73.03 Lightheadedness R42 Assessment & Plan Assessment & Plan (1) HTN (hypertension): Code(s): I10 - Essential (primary) hypertension Category: Medical Plan: Blood?pressure?is?fairly?well?controlled.??Goal?is?less?than?140/90 Continue?current?medication (2) Abdominal bloating: Code(s): R14.0 - Abdominal distension (gaseous) Category: Medical Plan: Improving. Encouraged?good?hydration Avoid?trigger?foods Continue?using?MiraLax?sparingly, as?needed (3) Pre-diabetes: Code(s): R73.03 - Prediabetes Category: Medical Plan: Continue?working?on?a?diet?low?in?sugars?starches Work?on?weight?loss?and?exercise Hydrate?well (4) Lightheadedness: Code(s): R42 - Dizziness and giddiness Category: Medical Plan: Mild?lightheadedness?without?any?chest?pain,?shortness?of?breath,?diaphoresis?or ?other?symptoms. Increase?hydration Regular?meals Will?follow-up?on?this?at?his?next,?upcoming? visit.??Or?he?will?call?sooner?if?worsening?any?symptoms.
[2025-02-12 15:50] VITALS: BP 130/70; PULSE 79; RESP 14; TEMP 36.6; O2SAT 95; BMI 34.1
== END 2025-02-12 16:30 | disposition home or self-care (01) ==
LOC: HO.HMCFM 15:26
PROVIDERS: PCP Family Medicine; Visit Provider Family Medicine
DX: I10 Essential (primary) hypertension (principal); R14.0 Abdominal distension (gaseous); R73.03 Prediabetes; R42 Dizziness and giddiness

== ENCOUNTER → 2025-02-12 15:25 | Outpatient (BNVA) | payer OTHER, SELFPAY | PROVIDERS: PCP Family Medicine; Visit Provider Family Medicine | DX: Z13.89 Encounter for screening for other disorder (principal) ==